=== PATIENT | male | born 1955 | race Caucasian/White ===

== ENCOUNTER → 2018-09-18 | Outpatient (CLI) | payer BC, SELFPAY ==
[2018-09-18 16:56] LABS: Anion Gap 9 (5-15); BUN 16 mg/dL (7-18); BUN/Creat Ratio 18.2 RATIO (10-20); Calcium,Total 8.9 mg/dL (8.5-10.1); Chloride 104 mmol/L (98-107); Cholesterol 209 mg/dL (200); Creatinine, Serum 0.88 mg/dL (0.70-1.30); EST Glomerular Filtration Rate 93 mL/min (>60); Est Glom Filt Rate - Afr Amer 113 mL/min (>60); Estradiol 47.2 pg/mL; Glucose 82 mg/dL (74-106); High Density Lipoprotein 42 mg/dL; PSA,Total - Annual Screen 1.32 ng/mL (0.00-4.00); Potassium 4.3 mmol/L (3.5-5.1); Sodium Level 141 mmol/L (136-145); Triglycerides 168 mg/dL; Very Low Density Lipoprotein 34 mg/dL (5-40)
[2018-09-23 12:09] LABS: Testosterone, Free 12.37 ng/dL (5.00-21.00)
[2018-09-23 13:16] LABS: Testosterone, % Free 2.91 % (1.50-4.20); Testosterone, Total 425 ng/dL (264-916)
== END | disposition home or self-care (01) ==
LOC: MFPLAB 11:33
PROVIDERS: Family Provider Family Medicine; PCP Family Medicine; Referring Provider Family Medicine; Visit Provider Family Medicine
DX: E78.00 Pure hypercholesterolemia, unspecified (principal); Z12.5 Encounter for screening for malignant neoplasm of prostate; I10 Essential (primary) hypertension; F52.21 Male erectile disorder
CPT/HCPCS: 36415; 80048; 80061; 82670; 84153; 84402; 84403; G0103

== ENCOUNTER 2021-06-07 09:36 | Outpatient (CLI) | payer MEDICARE, SELFPAY ==
--- NOTE | 2021-06-07 09:42 | RAD_ITS ---
STUDY: X-RAY - LUMBOSACRAL SPINE REASON FOR EXAM: Male, 66 years old. LUMBAGO TECHNIQUE: 7 view(s) of the lumbosacral spine were obtained including oblique views and lateral flexion and extension views.. COMPARISON: None FINDINGS: Normal lumbar lordosis. There is a minimal levoscoliosis of the lumbar spine. There is normal alignment of the vertebrae. There is multilevel endplate spondylosis of the lumbar vertebrae. There is multi-level degenerative disc disease with multi-level disc space narrowing. Facet joint osteoarthritis. Normal bilateral sacral ala, sacroiliac joints, and visualized sacrum. There is mild atherosclerotic calcification of the abdominal aorta without a demonstrated aneurysm. Calcified phleboliths are seen in the pelvis. RAD/L/S Spine w Bend Min 6 Vw IMPRESSION: Degenerative changes of the spine, as detailed above. Electronically Signed: Jr Pabon MD at 12:58 EDT ,
[2021-06-07 12:21] LABS: ALB/GLOB Ratio 1.3 RATIO (0.9-2.4); AST(SGOT) 23 U/L (15-37); Alanine Aminotransfer ALT/SGPT 37 U/L (16-61); Albumin, Serum 4.1 g/dL (3.2-5.0); Alkaline Phosphatase 63 U/L (45-117); Anion Gap 3 (5-15); BUN 19 mg/dL (7-18); BUN/Creat Ratio 19.9 RATIO (10-20); Calcium,Total 8.4 mg/dL (8.5-10.1); Chloride 104 mmol/L (98-107); Cholesterol 212 mg/dL (200); Creatinine, Serum 0.96 mg/dL (0.70-1.30); EST Glomerular Filtration Rate 84 mL/min (>60); Est Glom Filt Rate - Afr Amer 102 mL/min (>60); Globulin 3.2 g/dL (2.2-4.2); Glucose 89 mg/dL (74-106); High Density Lipoprotein 53 mg/dL; PSA,Total - Annual Screen 0.84 ng/mL (0.00-4.00); Potassium 4.2 mmol/L (3.5-5.1); Protein, Total 7.3 g/dL (6.4-8.2); Sodium Level 138 mmol/L (136-145); Thyroid Stim Hormone (TSH) 1.58 uIU/mL (0.358-3.74); Triglycerides 69 mg/dL; Very Low Density Lipoprotein 14 mg/dL (5-40)
== END 2021-06-07 23:59 | disposition home or self-care (01) ==
PROVIDERS: PCP Family Medicine; Referring Provider Family Medicine; Visit Provider Family Medicine
DX: M54.50 Low back pain, unspecified (principal); I10 Essential (primary) hypertension; R68.82 Decreased libido; Z12.5 Encounter for screening for malignant neoplasm of prostate; F41.9 Anxiety disorder, unspecified
CPT/HCPCS: 36415; 72114; 80053; 80061; 84153; 84403; 84443; G0103

== ENCOUNTER 2021-06-14 06:51 | Outpatient (RCR) | payer MEDICARE, SELFPAY ==
--- NOTE | 2021-06-14 08:39 | HP.PTEVAL ---
Patient's Visit Information DARCY MONTERO is a 66 year old M referred to Physical Therapy by Dr. Jose Luis Marte MD with a diagnosis of Lumbar DDD. Date of Evaluation: 06/14/21 Physical Therapist: Murali Kulkarni DPT - Visit Plan Frequency: 2x /Week Duration: 4 Weeks Plan: Start with prone lying, prone on elbows and REIL. Pt. to complete x6 daily. Progress with extension progression as tolerated. Once symptoms have started to reduce add in neutral spine core stability. - Subjective Pt. is here today for his initial evaluation with diagnosis of DDD of lumbar spine. Pt. reports having symptoms for for ~2-3 months. He did have xrays- showing DDD and endplate spondylosis. Pt. reports having increased pain in back initially, but is now more in his R buttock. He reports bending fwrd has been a good thing. Pt. does have increased pain in AMs. He reports he was lifting big heavy boxes at work, might have injured him self. He reports being able to lift and do activities. He reports pain that improves as the day goes on. He reports standing is okay, but walking is painful. He does ride a bike which seems to be better. He still working, but would like be back to work in his garden and out door activities. - Pain R LE Pain Intensity (Out of 10): 3 Pain Intensity Range: 1, 8 - Objective POSTURE: Pt. has slight lateral shift to L side. Pt. has slight flexed posture as well. Pt. is over wt. PALPATION: Pt. has tenderness at R side of lumbar spine, Hypomobility at L3-L5. He reports pain along gluteal region, but unable to palpate to increase symptoms. NEURO: Normal sensation of BLEs, normal DTR of BLEs. Pt. is able to rise on heels and toes without issues. ROM: Pt. has good hip and knee ROM without increase in symptoms. LUMBAR SPINE: flexion min loss NE, extension min loss decrease NB, SB L min loss NE, SB max loss increase NW, rotation L mod loss increase NW, rotation min loss NE. MMT: Pt. has good strength throughout BLEs. Core strength- poor. GAIT: Pt. has increased lateral shift in stance. He has an antalgic pattern during R stance phase. Increased pain noted with increased walking. - Special Tests L/S Slump test left side: Negative L/S Slump test right side: Positive L/S Left Straight Leg Raise: Negative L/S Right Straight Leg Raise: Positive Lumbar Standing: Flexion - Mechanical Response: No effect Lumbar Standing: Flexion - Symptoms During Testing: No effect Lumbar Standing: Flexion - Symptoms After Testing: No effect Lumbar Standing: Extension - Mechanical Response: No effect Lumbar Standing: Extension - Symptoms During Testing: Decreases Lumbar Standing: Extension - Symptoms After Testing: No better Lumbar Standing: Right Side Glides - Mechanical Response: No effect Lumbar Standing: Right Side [place] - Symptoms During Testing: Increases Lumbar Standing: Right Side [place] - Symptoms After Testing: Worse Lumbar Standing: Left Side [place] - Mechanical Response: No effect Lumbar Standing: Left Side [place] - Symptoms During Testing: Produces Lumbar Standing: Left Side [place] - Symptoms After Testing: No effect Lumbar Lying: Flexion - Mechanical Response: No effect Lumbar Lying: Flexion - Symptoms During Testing: Decreases Lumbar Lying: Flexion - Symptoms After Testing: No better Lumbar Lying: Extension - Mechanical Response: No effect Lumbar Lying: Extension - Symptoms During Testing: Decreases Lumbar Lying: Extension - Symptoms After Testing: Better Lumbar Static: Slouched Sit - Mechanical Response: No effect Lumbar Static: Slouched Sit - Symptoms During Testing: No effect Lumbar Static: Slouched Sit - Symptoms After Testing: No effect Lumbar Static: Sitting Erect - Mechanical Response: No effect Lumbar Static: Sitting Erect - Symptoms During Testing: No effect Lumbar Static: Sitting Erect - Symptoms After Testing: No effect Lumbar Static:Lying Prone in Extension - Mechanical Response: No effect Lumbar Static: Lying Prone in Extension - Sx During Testing: Decreases Lumbar Static: Lying Prone in Extension - Sx After Testing: Better - Balance/Special Test Scores Oswestry Low Back Score: 20 - Goals Goal 1:: LTG: Pt. to be I with HEP for lumbar ROM, core strengthening. Goal Time Frame: 4-6 Weeks Goal 2:: STG: pt. to sleep throughout the night without increase in symptoms, with 0-2/10 pain in lumbar spine upon waking. Goal Time Frame: 2-4 Weeks Goal 3:: LTG: pt. to complete all work related activities with 0-2/10 pain in lumbar spine. Goal Time Frame: 4-6 Weeks Goal 4:: LTG: pt. to ambulate with normal gait pattern without increase in symptoms for unlimited distances. Goal Time Frame: 4-6 Weeks Goal 5:: STG: pt. to have no presence of lateral shift. Goal Time Frame: 2-4 Weeks Goal 6:: LTG: Pt. to have full ROM of lumbar spine without increase in symptoms. Goal Time Frame: 4-6 Weeks - Rehabilitation Potential Physical Therapy Diagnosis: Pt. has signs and symptoms consistent with lumbar DDD. Pt. has testing suggesting discogenic involvement with a positive results with extension. He has marked hypomobility with lateral shift, increased pain and decreased tolerance to functional and work activities. Rehabilitation Potential: Good - Anticipated Interventions Patient/Client Instruction: Educate patient on: Condition, Plan of Care, Risk Factors, Benefits of Fitness Program For the Purpose of:: To foster healthy habits, To improve decision making, To facilitate caregiver knowledge, To improve self management, To prevent re-injury, To improve ability to perform tasks related to life management, To improve tolerance to ADL's Therapeutic Exercise to Include: Strength training, Power training, Endurance training, Body mechanics, Postural training, Flexibilty training, Passive ROM, Active ROM, Dynamic Lumbar Stabilization, Harris Exercises For the Purpose of:: To decrease pain, To decrease swelling/inflammation, To increase ROM, To improve nutrient delivery to tissue, To increase oxygenation perfusion, To improve muscle performance and motor function, To improve ability to perform ADL's, To improve health of tissue, To decrease soft tissue restriction Manual Therapy Techniques to Include: Mobilization, Manipulation, Functional dry needling, Soft tissue mobilization For the Purpose of:: To decrease swelling/inflammation, To increase ROM, To improve nutrient delivery to tissue Thank you for the opportunity to evaluate your patient. For Medicare and Medicare HMO plans, please review the plan of care and approve it. It will need to be FAXED BACK to us at [phone] for Medicare purposes. For Medicare only, by signing this I certify the plan of care. Please let me know if there are questions or concerns regarding this plan of care. Physician Signature: Date:
== END 2021-06-14 19:00 | disposition home or self-care (01) ==
LOC: PT 06:51
PROVIDERS: PCP Family Medicine; Referring Provider Family Medicine; Visit Provider Family Medicine
DX: M51.36 Other intervertebral disc degeneration, lumbar region (principal)
CPT/HCPCS: 97110; 97161

== ENCOUNTER → 2023-01-17 | Outpatient (CLI) | payer MEDICARE, SELFPAY ==
[2023-01-17 15:10] LABS: AST(SGOT) 18 U/L (15-37); Alanine Aminotransfer ALT/SGPT 31 U/L (16-61); Albumin, Serum 3.5 g/dL (3.2-5.0); Alkaline Phosphatase 63 U/L (45-117); Anion Gap 7 (5-15); BUN 17 mg/dL (7-18); BUN/Creat Ratio 18.9 RATIO (10-20); Calcium,Total 8.6 mg/dL (8.5-10.1); Chloride 107 mmol/L (98-107); Cholesterol 226 mg/dL (200); EST Glomerular Filtration Rate 89 mL/min (>60); Est Glom Filt Rate - Afr Amer 108 mL/min (>60); Globulin 3.5 g/dL (2.2-4.2); Glucose 117 mg/dL (74-106); High Density Lipoprotein 41 mg/dL; PSA,Total - Annual Screen 0.97 ng/mL (0.00-4.00); Potassium 4.7 mmol/L (3.5-5.1); Sodium Level 142 mmol/L (136-145); Triglycerides 494 mg/dL
== END | disposition home or self-care (01) ==
LOC: MFPLAB 12:09
PROVIDERS: PCP Family Medicine; Visit Provider Family Medicine
DX: R73.01 Impaired fasting glucose (principal); E78.00 Pure hypercholesterolemia, unspecified; Z12.5 Encounter for screening for malignant neoplasm of prostate
CPT/HCPCS: 36415; 80053; 80061; 84153; G0103

== ENCOUNTER → 2023-08-27 | Outpatient (CLI) | payer MEDICARE, SELFPAY ==
--- NOTE | 2023-08-27 15:22 | RAD_ITS ---
INDICATION: pain, decreased rom EXAMINATION/TECHNIQUE: X-RAY - LEFT XR Knee Complete 4 Views or More 4 VIEWS COMPARISON: FINDINGS: SOFT TISSUES: There is prepatellar soft tissue swelling. No radiopaque foreign body. BONES/JOINTS: No acute fracture or subluxation.. Degenerative spurring at the femorotibial and patellofemoral compartments. Narrowing of the medial femorotibial compartment .. No sclerotic or destructive changes observed. RAD/Knee 4 or More Views IMPRESSION: Degenerative changes. Prepatellar subcutaneous edema. Electronically Signed: Ishan Petit DO at 16:11 EDT Reading Location ID and State: [facility] / [place] Tel [phone], Service support ,
== END | disposition home or self-care (01) ==
LOC: MTRAD 15:21
PROVIDERS: PCP Family Medicine; Referring Provider Family Medicine; Visit Provider Family Medicine
DX: M25.562 Pain in left knee (principal)
CPT/HCPCS: 73564

== ENCOUNTER → 2024-03-05 | Outpatient (CLI) | payer MEDICARE, SELFPAY ==
[2024-03-05 10:54] LABS: AST(SGOT) 14 U/L (15-37); Alanine Aminotransfer ALT/SGPT 30 U/L (16-61); Albumin, Serum 3.5 g/dL (3.2-5.0); Alkaline Phosphatase 71 U/L (45-117); Anion Gap 6 (5-15); BUN 17 mg/dL (7-18); BUN/Creat Ratio 19.2 RATIO (10-20); Calcium,Total 8.8 mg/dL (8.5-10.1); Chloride 106 mmol/L (98-107); Cholesterol 209 mg/dL (200); Creatinine, Serum 0.89 mg/dL (0.70-1.30); EST Glomerular Filtration Rate 91 mL/min (>60); Est Glom Filt Rate - Afr Amer 110 mL/min (>60); Globulin 3.4 g/dL (2.2-4.2); Glucose 99 mg/dL (74-106); High Density Lipoprotein 49 mg/dL; Protein, Total 6.9 g/dL (6.4-8.2); Sodium Level 138 mmol/L (136-145); Triglycerides 121 mg/dL; Very Low Density Lipoprotein 24 mg/dL (5-40)
== END | disposition home or self-care (01) ==
LOC: MTLAB 07:37
PROVIDERS: PCP Family Medicine; Referring Provider Family Medicine; Visit Provider Family Medicine
DX: Z12.5 Encounter for screening for malignant neoplasm of prostate (principal); I10 Essential (primary) hypertension
CPT/HCPCS: 36415; 80053; 80061; 84153; G0103

== ENCOUNTER → 2024-05-07 | Outpatient (CLI) | payer MEDICARE, SELFPAY ==
--- NOTE | 2024-05-07 08:00 | VDLE_ITS ---
Reason For Study Reason For Study: Left leg pain RIGHT LEFT CFV is compressible, spontaneous, phasic, competent GSV is normal. and demonstrates normal augmentation. CFV is compressible, spontaneous, phasic, competent, Procedure and demonstrates normal augmentation. This is a venous duplex using B-mode, color flow and FV is compressible, spontaneous, phasic, competent spectral Doppler. and demonstrates normal augmentation. Exam performed in department. POP V is compressible, spontaneous, phasic, competent A preliminary report was called and/or faxed to and demonstrates normal augmentation. Estuardo. T/P Trunk is compressible. PTV is compressible. LT PerV is compressible. Nonvascularized structure noted in the left popliteal fossa that measures 1.33 x 2.85 x 5.95 cm. VL/Venous Duplex US, Unilateral Interpretation Summary Deep veins of the left lower extremity are patent and compressible segmentally. There is no evidence of left lower extremity deep vein thrombosis. Valvular competence appears intact within the p roximal deep venous system on the left . The left great saphenous vein appears patent and compressible segmentally. A no n-vascular, hypoechoic structure is noted in the left popliteal space, measuring 1.33 cm x 2.85 cm x 5.95 cm. This may re present a popliteal cyst. Clinical correlation is advised. The right common femoral vein is patent and compressibl e . Ordering Physician: Salvador Marte Referring Physician: Salvador Marte Performed By: Trena Hernandez RVT
== END | disposition home or self-care (01) ==
PROVIDERS: PCP Family Medicine; Referring Provider Family Medicine; Visit Provider Family Medicine
DX: M25.562 Pain in left knee (principal); M79.605 Pain in left leg
CPT/HCPCS: 93971

== ENCOUNTER → 2024-05-26 | Outpatient (CLI) | payer MEDICARE, SELFPAY ==
[2024-05-26 11:01] LABS: Cholesterol 142 mg/dL (<=200); High Density Lipoprotein 52 mg/dL; Low Density Lipoprotein Calc. 75 mg/dL; Triglycerides 75 mg/dL; Very Low Density Lipoprotein 15 mg/dL (5-40); cholesterol:hdl ratio screen 2.74
== END | disposition home or self-care (01) ==
LOC: MTLAB 08:25
PROVIDERS: PCP Family Medicine; Referring Provider Family Medicine; Visit Provider Family Medicine
DX: E78.00 Pure hypercholesterolemia, unspecified (principal)
CPT/HCPCS: 36415; 80061

== ENCOUNTER → 2024-09-01 | Outpatient (CLI) | payer MEDICARE, SELFPAY ==
[2024-09-01 17:19] LABS: Hematocrit 42.4 % (40-54); Hemoglobin 14.5 g/dL (13.0-16.5); Immature Granulocytes Count 0.010 X10^3/uL (0.0-0.0); Mean Corp Hgb Conc 34.2 g/dL (32-36); Mean Corpuscular Volume 88.3 fL (80-94); Mean Platelet Vol. 9.8 fl (6.2-12.0); NRBC Flagged by Analyzer 0 % (0-5); Platelet Count 208 K/mm3 (150-450); RBC Distribution Width CV 13.4 % (11.6-14.6); RBC Distribution Width SD 43.8 fl (35.1-43.9); Red Blood Count 4.80 M/mm3 (4.6-6.2); White Blood Count 9.1 K/mm3 (4.4-11.0)
[2024-09-01 18:03] LABS: Anion Gap 14 (5-15); BUN 20 mg/dL (4-19); BUN/Creat Ratio 22.4 RATIO (10-20); Calcium,Total 9.3 mg/dL (7.6-11.0); Carbon Dioxide 22.0 mmol/L (21.0-32.0); Chloride 104 mmol/L (98-108); Glucose 92 mg/dL (70-99); Potassium 4.1 mmol/L (3.3-5.1)
== END | disposition home or self-care (01) ==
PROVIDERS: PCP Family Medicine; Referring Provider Internal Medicine Cardiovascular Disease; Visit Provider Internal Medicine Cardiovascular Disease
DX: I10 Essential (primary) hypertension (principal); I25.10 Atherosclerotic heart disease of native coronary artery without angina pectoris
CPT/HCPCS: 36415; 80048; 85025

== ENCOUNTER 2024-09-08 09:08 | Observation (INO) | payer MEDICARE, SELFPAY ==
[2024-09-07 08:05] VITALS: BMI 34.3
[2024-09-08] VITALS (9 sets, daily range): BP systolic 117–129; BP diastolic 67–86; PULSE 60–72; RESP 14–18; TEMP 36.5–36.6; O2SAT 98–100
--- OUTSIDE RECORDS SUMMARY | 2024-09-08 07:25 | XMS RPT_ITS | CCD ---
Author Organization [facility] Care Team Providers Care Software Solutions Architect Name Role Phone Laura Coronel LPN Unavailable Unavailab marcio Lundberg GLASS TUBE BENDER-C, Ashutosh Lee Unavailable Unavailable Dr. Jose Luis Marte Primary Care Provider [phone] Dr. Jose Luis Marte Referring Provider [facility] DRILL SHARPENER OPERATOR, DRILL SHARPENER OPERATOR-C Samir Garibay Attending Provider Estuardo TAN, Dr. Franco Primary Care Provider Dr. Salvador Marte MD Attending Provider [phone] Dr. Salvador Marte MD Referring Provider Estuardo TAN, Dr. Franco Primary Care Provider Dr. Salvador Marte MD Attending Provider Dr. Salvador Marte MD Referring Provider [phone] La TAN, Dr. Mark Lee Attending Provider Dr. Leonid Camp MD Attending Provider Conrado TAN, Dr. Jaquez Referring Provider Leonid Camp Referring Unavailable Salvador Marte Primary Care Unavailable Leonid Camp Attending Unavailable Leonid Camp Referring Unavailable Salvador Marte Primary Care Unavailable Leonid Camp Attending Unavailable Salvador Marte Referring Unavailable Salvador Marte Primary Care Unavailable Salvador Marte Attending Unavailable Salvador Marte Referring Unavailable Salvador Marte Primary Care Unavailable Salvador Marte Attending Unavailable Salvador Marte Attending Unavailable Salvador Marte Referring Unavailable Salvador Marte Primary Care Unavailable Salvador Marte Attending Unavailable Salvador Marte Referring Unavailable Salvador Marte Primary Care Unavailable Leonid Camp Attending Unavailable Leonid Camp Referring Unavailable Salvador Marte Primary Care Unavailable Salvador Marte Referring Unavailable Leonid Camp Attending Unavailable Salvador Marte Primary Care Unavailable Estuardo TAN, Dr. Franco Primary Care Provider Estuardo TAN, Dr. Franco Attending Provider Estuardo TAN, Dr. Franco Referring Provider Medications Current Medications Medication Drug Class(es) Dates Sig (Normalized) Sig (Original) amLODIPine 10 mg oral tablet (2 sources) Dihydropyridine Calcium Channel Sujey Start: 08-25-2024 take 1 tablet by mouth once daily Amlodipine 10 mg tablet Active 10 mg PO daily August 25, 2024 12:00am aspirin 81 mg delayed release oral tablet (2 sources) Platelet Aggregation Inhibitor, Nonsteroidal Anti-inflammatory Drug Start: 09-01-2024 take 1 tablet by mouth once daily Aspirin (Adult Aspirin Regimen) 81 mg tablet,delayed release (DR/EC) Active 81 mg PO daily September 01, 2024 12:00am losartan potassium 100 mg oral tablet (7 sources) Angiotensin 2 Receptor Sujey Start: 12-22-2022 End: 08-25-2024 take 1 tablet by mouth once daily Losartan 100 mg tablet Active 100 mg PO daily August 25, 2024 1:11pm Start: 12-22-2022 Losartan Activ e MG PO December 21, 2022 11:00pm Multivitamin preparation (1 source) Start: 12-22-2022 take 1 tablet by mouth once daily Multivitamin Active 1 TABLET PO DAILY December 21, 2022 11:00pm Multivitamin tablet (4 sources) Start: 12-22-2022 Multivitamin t ablet Active 1 {tbl} PO DAILY December 22, 2022 12:00am Adams-3 Fatty Acids (5 sources) Start: 12-22-2022 take 1 capsule by mouth once daily Adams-3 Fatty Acids 1,250 mg capsule Active 1250 mg PO DAILY December 22, 2022 12:00am Start: 12-22-2022 take 1250 mg by mouth once mukund ly Adams-3 Fatty Acids Active 1250 MG PO DAILY December 21, 2022 11:00pm rosuvastatin calcium 20 mg oral tablet (4 sources) HMG-CoA Reductase Inhibitor Start: 08-25-2024 End: 09-01-2024 take 1 tablet by mouth once daily Rosuvastatin 20 mg tablet Active 20 mg PO daily September 01, 2024 3:54pm Completed/Discontinued Medications Medication Drug Class(es) Dates Sig (Normalized) Sig (Original) azithromycin 250 mg oral tablet (3 sources) Macrolide Antimicrobial Start: 07-28-2016 AZITHROMYCIN 250 MG TABS 2 tablets by mouth today and then 1 tablet daily for the next 4 days AZITHROMYCIN [id number] Ashutosh Lundberg GLASS TUBE BENDER-C cephalexin 500 mg oral tablet (5 sources) Cephalosporin Antibacterial Start: 12-22-2022 End: 01-01-2023 take 1 tablet by mouth three times daily Cephalexin 500 mg tablet Discontinued 500 mg PO THREE TIMES A DAY 30 10 0 December 22, 2022 12:00am December 31, 2022 1:00am January 01, 2023 1:04am predniSONE 10 mg oral tablet (5 sources) Start: 12-22-2022 End: 01-06-2023 Prednisone 10 mg tablet Discontinued 10 mg PO .COMPLEX 35 15 0 December 22, 2022 12:00am January 05, 2023 1:00am January 06, 2023 1:03am 10 mg orally; 40mg x5 days, 20mg x5 days, 10mg x5 days Start: 12-22-2022 End: 01-06-2023 Prednisone Discontinued 10 M G PO .COMPLEX 35 15 December 21, 2022 11:00pm January 06, 2023 12:03am 10 mg orally; 40mg x5 days, 20mg x5 days, 10mg x5 days Problems Active Problems Problem Classification Problem Date Documented Da te Episodic/Chronic Coronary atherosclerosis and other heart disease (4 sources) Coronary arteriosclerosis; Translations: [Atherosclerotic heart disease of [place] coronary artery without angina pectoris] Onset: 09-01-2024 08-25-2024 Chronic Disorders of lipid metabolism (1 source) Pure hypercholesterolemia , unspecified; Translations: [Pure hypercholesterolemia , unspecified] Onset: 06-01-2024 Chronic Essential hypertension (9 sources) Hypertensive disorder; Translations: [Essential hypertension] Onset: 09-01-2024 07-28-2016 Chronic Other screening for suspected conditions (not mental disorders or infectious disease) (7 sources) Coronary arteriography abnormal; Translations: [Abnormal findings on diagnostic imaging of heart and coronary circulation] Onset: 04-01-2024 08-25-2024 Episodic Other skin disorders (5 sources) Eruption; Translations: [Rash and other nonspecific skin eruption] 12-22-2022 Episodic Other skin disorders (1 source) Rash and other nonspecific skin eruption; Translations: [Rash and other nonspecific skin eruption] 12-22-2022 Episodic Past or Other Problems Problem Classification Problem Date Documented Da te Episodic/Chronic Headache, including migraine (3 sources) Headache; Translations: [Headache] Onset: 07-28-2016 07-28-2016 Episodic Other non-traumatic joint disorders (1 source) Pain in left knee; Translations: [Pain in left knee] Onset: 05-17-2024 Episodic Other upper respiratory infections (6 sources) Acute upper respiratory infection; Translations: [Acute pharyngitis] Onset: 07-28-2016 07-28-2016 Episodic Results Test Name Value Interpretation Reference Range Facility Absolute lymphocyte countOrd ered By: Leonid Camp on 09-01-2024 Lymphocytes Auto (Unsp spec) [#/Vol] 2.70 10*3/uL 0.83-4.51 [facility] Absolute neutrophil countOrd ered By: Leonid Camp on 09-01-2024 Neutrophils (Bld) [#/Vol] 5.6 10*3/uL 2.0-7.7 [facility] Anion gap in Serum or Plasma Ordered By: Leonid Camp on 09-01-2024 Anion gap [Moles/Vol] 14 mmol/L 5-15 [facility] Automated lymphocyte count a s percentage of total leukocytesOrdered By: Leonid Camp on 09-01-2024 Lymphocytes/100 WBC Auto (Unsp spec) 29.6 % 19-41 [facility] BUN/creatinine ratioOrdered By: Leonid Camp on 09-01-2024 Urea nitrogen/Creatinine [Mass ratio] 22.4 mg/mg High 10-20 [facility] Basic Metabolic Profile (BMP )on 07-09-2025 BUN/CRE 22.4 RATIO High 10-20 [facility] Comment on above: Performed By: #### L 500.2500, L100.0100 #### [facility] [address] [place], [address] Calcium [Mass/Vol] 9.3 mg/dL Normal 7.6-11.0 [facility] Comment on above: Performed By: #### L 500.2500, L100.0100 #### [facility] [address] [place], [address] Chloride [Moles/Vol] 104 mmol/L Normal 98-108 [facility] Comment on above: Performed By: #### L 500.2500, L100.0100 #### [facility] [address] [place], [address] CO2 [Moles/Vol] 22.0 mmol/L Normal 21.0-32.0 [facility] Comment on above: Performed By: #### L 500.2500, L100.0100 #### [facility] [address] [place], [address] Creatinine [Mass/Vol] 0.87 mg/dL Normal 0.70-1.20 [facility] Comment on above: Performed By: #### L 500.2500, L100.0100 #### [facility] [address] [place], [address] GAP 14 Normal 5-15 [facility] Comment on above: Performed By: #### L 500.2500, L100.0100 #### [facility] [address] [place], [address] GFR/1.73 sq M.predicted among non-blacks MDRD (S/P/Bld) [Vol rate/Area] 94 mL/min/{1.73_m2} Normal >60 [facility] Comment on above: Result Comment: mL/m in/1.73m2 CKD-EPI Creatinine Equation (2020) Performed By: #### L 500.2500, L100.0100 #### [facility] [address] [place], [address] Glucose [Mass/Vol] 92 mg/dL Normal 70-99 [facility] Comment on above: Performed By: #### L 500.2500, L100.0100 #### [facility] [address] [place], [address] Potassium [Moles/Vol] 4.1 mmol/L Normal 3.3-5.1 [facility] Comment on above: Result Comment: Hemo lysis present, Results??could be affected. ?? Performed By: #### L 500.2500, L100.0100 #### [facility] [address] [place], [address] Sodium [Moles/Vol] 139 mmol/L Normal 133-145 [facility] Comment on above: Performed By: #### L 500.2500, L100.0100 #### [facility] [address] [place], [address] Urea nitrogen [Mass/Vol] 20 mg/dL High 4-19 [facility] Comment on above: Performed By: #### L 500.2500, L100.0100 #### [facility] [address] [place], [address] Basophil percentageOrdered B y: [place] Conrado on 09-01-2024 Basophils/100 WBC (Bld) 0.7 % 0-1 [facility] CBC W/Diff, Automatedon 0 Absolute Lymph 2.70 X10 3/uL Normal 0.83-4.51 [facility] Comment on above: Performed By: #### L 500.2500, L100.0100 #### [facility] [address] [place], [address] Absolute Neut 5.6 X10 3/uL Normal 2.0-7.7 [facility] Comment on above: Performed By: #### L 500.2500, L100.0100 #### [facility] [address] [place], [address] Basophils/100 WBC (Bld) 0.7 % Normal 0-1 [facility] Comment on above: Performed By: #### L 500.2500, L100.0100 #### [facility] [address] [place], [address] Eosinophils/100 WBC (Bld) 0.3 % Normal 0-5 [facility] Comment on above: Performed By: #### L 500.2500, L100.0100 #### [facility] [address] [place], [address] Erythrocyte distribution width (RBC) [Ratio] 13.4 % Normal 11.6-14.6 [facility] Comment on above: Performed By: #### L 500.2500, L100.0100 #### [facility] [address] [place], [address] Hematocrit (Bld) [Volume fraction] 42.4 % Normal 40-54 [facility] Comment on above: Performed By: #### L 500.2500, L100.0100 #### [facility] [address] [place], [address] Hemoglobin (Bld) [Mass/Vol] 14.5 g/dL Normal 13.0-16.5 [facility] Comment on above: Performed By: #### L 500.2500, L100.0100 #### [facility] [address] [place], [address] IG% 0.100 Normal 0.0-0.9 [facility] Comment on above: Result Comment: IG% - Immature Granulocytes (promyelocytes, myelocytes and metamyelocytes) > 1% indicates that a LEFT SHIFT is Present. Performed By: #### L 500.2500, L100.0100 #### [facility] [address] [place], [address] Lymphocytes/100 WBC (Bld) 29.6 % Normal 19-41 [facility] Comment on above: Performed By: #### L 500.2500, L100.0100 #### [facility] [address] [place], [address] MCH (RBC) [Entitic mass] 30.2 pg Normal 27.0-32.0 [facility] Comment on above: Performed By: #### L 500.2500, L100.0100 #### [facility] [address] [place], [address] MCHC (RBC) [Mass/Vol] 34.2 g/dL Normal 32-36 [facility] Comment on above: Performed By: #### L 500.2500, L100.0100 #### [facility] [address] [place], [address] MCV (RBC) [Entitic vol] 88.3 fL Normal 80-94 [facility] Comment on above: Performed By: #### L 500.2500, L100.0100 #### [facility] [address] [place], [address] Monocytes/100 WBC (Bld) 8.0 % Normal 0-10 [facility] Comment on above: Performed By: #### L 500.2500, L100.0100 #### [facility] [address] [place], [address] Neutrophils/100 WBC (Bld) 61.3 % Normal 47-70 [facility] Comment on above: Performed By: #### L 500.2500, L100.0100 #### [facility] [address] [place], [address] Nucleated RBC (Bld) [#/Vol] 0 10*3/uL Normal 0-5 [facility] Comment on above: Performed By: #### L 500.2500, L100.0100 #### [facility] [address] [place], [address] Platelet mean volume (Bld) [Entitic vol] 9.8 fL Normal 6.2-12.0 [facility] Comment on above: Performed By: #### L 500.2500, L100.0100 #### [facility] [address] [place], [address] Platelets (Bld) [#/Vol] 208 10*3/uL Normal 150-450 [facility] Comment on above: Performed By: #### L 500.2500, L100.0100 #### [facility] [address] [place], [address] RBC (Bld) [#/Vol] 4.80 10*6/uL Normal 4.6-6.2 [facility] Comment on above: Performed By: #### L 500.2500, L100.0100 #### [facility] [address] [place], [address] RDW SD 43.8 fl Normal 35.1-43.9 [facility] Comment on above: Performed By: #### L 500.2500, L100.0100 #### [facility] [address] [place], [address] WBC (Bld) [#/Vol] 9.1 10*3/uL Normal 4.4-11.0 [facility] Comment on above: Performed By: #### L 500.2500, L100.0100 #### [facility] [address] [place], [address] Carbon dioxide, total [Moles /volume] in Central venous bloodOrdered By: Leonid Camp on 09-01-2024 CO2 [Moles/Vol] 22.0 mmol/L 21.0-32.0 [facility] Cardiology Visit Reporton Cardiology Visit Report [facility] [address] [place] [address] OFFICE VISIT Date of Service: 09/01/24 MR#: [id number] Acct: [id number] Name: DARCY MONTERO Rep #: [id number] : 1955 Provider: Dr. Leonid Camp MD Age/Sex: 69/M Location: [facility] Status: Signed HPI HPI History of Present Illness Details: 69-year-old man with a history of hypertension hyperlipidemia on therapy with a strong family history of coronary artery disease. His brother had a markedly elevated coronary calcium score and he went and had a coronary calcium score which demonstrated marked elevation with a left main demonstrating 62, left anterior descending artery with 5700, circumflex artery with 13, right coronary artery with 78. His total Agatston score was 5859. He denies any chest pain or shortness of breath or paroxysmal nocturnal dyspnea pedal edema no neck arm or jaw discomfort suggest angina. He has been compliant with his medications his physical exam is significant for soft systolic murmur noted left sternal border his electrocardiogram demonstrates sinus rhythm with a rate of 78 bpm. His lipid profile demonstrates a total cholesterol 142 HDL of 52 LDL of 75. Intake Vital Signs 09/01/24 15:57 Height 5 ft 8 in Weight: 226 lb BMI 34.3 BP 146/78 H Blood Pressure Location Lt brachial Position Sitting Respiration 16 Pulse 80 Pulse Source Monitor Intake Visit Reasons: ABN CCTA (ESTUARDO) Second Time Worker Required: No Accompanied by: Self Is patient in pain?: No Allergies No Known Allergies Allergy (Unverified 09/01/24 15:53) Medications ???Medication ???Instructions ???Recorded ???Confirmed ???Type multivitamin 1 tab PO DAILY 12/22/22 09/01/24 H istory omega-3 fatty acids 1,250 mg 1,250 mg PO DAILY 12/22/22 5 History capsule amlodipine 10 mg tablet 10 mg PO QDAY 08/25/24 09/01/24 Hi story losartan 100 mg tablet 100 mg PO QDAY 07/02/25 07/09/25 H istory aspirin 81 mg tablet,delayed 81 mg PO QDAY 09/01/24 09/01/24 Hi story release (Adult Aspirin Regimen) rosuvastatin 20 mg tablet 20 mg PO QDAY 09/01/24 09/01/24 Hi story Have you fallen in the past year?: No [facility] Medical History CAD (coronary artery disease) Abnormal cardiac CT angiography Essential (primary) hypertension Surgical History No history of previous surgery Family History Father Heart disease Myocardial infarction Brother Heart disease Social History Smoking Status: Former smoker alcohol intake: current alcohol intake frequency: holidays/special occasions only substance use type: does not use ROS Const Const: Negative for fatigue, weakness, headache(s), daytime sleepiness or difficulty sleeping ENT ENT: Negative for headache(s), dizziness or Nosebleed/epistaxis Cardio Chest Pain: No Palpitations: No Edema: None Resp Respiratory: Negative for SOB with activity, SOB at rest, SOB orthopnea SOB lying down or Cough GI GI: Negative nausea, vomiting or heartburn Neuro Neuro: Negative for dizziness, lightheadedness, near syncope, headache(s) or weakness Endo Endo: Negative for fatigue Cardiology Exam Const Appearance: cooperative, healthy appearing, no acute distress, well developed and well groomed Nutritional Appearance: average body habitus and well nourished Orientation: alert, awake and oriented x3 Head Head: normal to inspection, normocephalic and atraumatic Ears: hearing grossly normal bilaterally and external ears normal Nose: external nose normal, nares normal, nasal mucous membranes and turbinates normal, septum normal and no nasal discharge Face and Sinus: face symmetric Mouth: oral mucosae normal, tongue normal, oropharynx normal and moist mucous membranes Teeth and gingiva: dentition normal Throat: posterior oropharynx normal, tonsils normal and uvula midline Eyes General: appearance normal, both eyes and all related structures Eyelids: eyelids normal Conjunctivae: conjunctivae normal Pupils: PERRL, normal by confrontation and accommodation normal EOM: EOM intact bilaterally Neck Neck: normal visual inspection, trachea midline and no JVD JVD: +5 Carotids: normal carotid upstroke and bounding pulses Chest Chest inspection: normal inspection of the chest, symmetric chest movement and normal respiratory effort Auscultation: Bilateral: Clear to Auscultation Cardio Palpation: normal PMI Rate: regular rate Rhythm: regular rhythm Heart sounds: S1 normal, S2 normal, murmur and normal, physiologic split S2; Negative rub or gallop Murmur: Grade 1/6 GI (more content not included)... Normal [facility] Chloride assayOrdered By: Bandar Camp on 09-01-2024 Chloride [Moles/Vol] 104 mmol/L 98-108 [facility] Eosinophil percentageOrdered By: Leonid Camp on 09-01-2024 Eosinophils/100 WBC (Bld) 0.3 % 0-5 [facility] Erythrocyte distribution wid th ratioOrdered By: Leonid Camp on 09-01-2024 Erythrocyte distribution width (RBC) [Ratio] 13.4 % 11.6-14.6 [facility] Erythrocyte distribution wid th standard deviationOrdered By: Leonid Camp on 09-01-2024 Erythrocyte distribution width (RBC) [Ratio] 43.8 fl 35.1-43.9 [facility] Glomerular filtration rate ( GFR) estimation/1.73 sq m using serum, plasma, or whole bOrdered By: Leonid Camp on 09-01-2024 GFR/1.73 sq M.predicted among non-blacks MDRD (S/P/Bld) [Vol rate/Area] 94 mL/min/{1.73_m2} >60 [facility] Comment on above: mL/min/1.73m2 CKD-EP I Creatinine Equation (2020) Hematocrit Auto (Bld) [Volum e fraction]Ordered By: Leonid Camp on 09-01-2024 Hematocrit (Bld) [Volume fraction] 42.4 % 40-54 [facility] Hemoglobin measurementOrdere d By: Leonid Camp on 09-01-2024 Hemoglobin (Bld) [Mass/Vol] 14.5 g/dL 13.0-16.5 [facility] Immature granulocytes/100 WB C Auto (Bld)Ordered By: Leonid Stovallori on 09-01-2024 Immature granulocytes/100 WBC (Bld) 0.100 % 0.0-0.9 [facility] Comment on above: IG% - Immature Granu locytes (promyelocytes, myelocytes and metamyelocytes) > 1% indicates that a LEFT SHIFT is Present. MCV (mean corpuscular volume ) determinationOrdered By: [place] Camp on 09-01-2024 MCV (RBC) [Entitic vol] 88.3 fL 80-94 [facility] Mean corpuscular hemoglobin (MCH) determinationOrdered By: [place] Conrado on 09-01-2024 MCH (RBC) [Entitic mass] 30.2 pg 27.0-32.0 [facility] Mean corpuscular hemoglobin concentration (MCHC) determinationOrdered By: [place] Camp on 09-01-2024 MCHC (RBC) [Mass/Vol] 34.2 g/dL 32-36 [facility] Mean platelet volume determi nationOrdered By: [place] Camp on 09-01-2024 Platelet mean volume (Bld) [Entitic vol] 9.8 fL 6.2-12.0 [facility] Monocyte percentageOrdered B y: [place] Conrado on 09-01-2024 Monocytes/100 WBC (Bld) 8.0 % 0-10 [facility] Neutrophil percentageOrdered By: [place] Conrado on 09-01-2024 Neutrophils/100 WBC (Bld) 61.3 % 47-70 [facility] [facility] Nucleated red blood cell per centageOrdered By: Portlanddenita Camp on 09-01-2024 Nucleated RBC/100 WBC (Bld) [Ratio] 0 % 0-5 [facility] Platelet countOrdered By: Cy ril Conrado on 09-01-2024 Platelets (Bld) [#/Vol] 208 10*3/uL 150-450 [facility] Potassium measurement (mass/ volume)Ordered By: Leonidgeorgia Camp on 09-01-2024 Potassium (Unsp spec) [Mass/Vol] 4.1 mmol/L 3.3-5.1 [facility] Comment on above: Hemolysis present, R esults could be affected. RBC Auto (Bld) [#/Vol]Ordere d By: Leonid Conrado on 09-01-2024 RBC (Bld) [#/Vol] 4.80 10*6/uL 4.6-6.2 [facility] Serum creatinine measurement (mass/volume)Ordered By: Leonid Camp on 09-01-2024 Creatinine [Mass/Vol] 0.87 mg/dL 0.70-1.20 [facility] Serum glucose measurement (m ass/volume)Ordered By: Leonid Camp on 09-01-2024 Glucose [Mass/Vol] 92 mg/dL 70-99 [facility] Serum or plasma calcium rogerio urement (mass/volume)Ordered By: Leonid Camp on 09-01-2024 Calcium [Mass/Vol] 9.3 mg/dL 7.6-11.0 [facility] Serum or plasma urea nitroge n measurement (mass/volume)Ordered By: Leonid Camp on 09-01-2024 Urea nitrogen [Mass/Vol] 20 mg/dL High 4-19 [facility] Sodium levelOrdered By: Kalyan Camp on 09-01-2024 Sodium [Moles/Vol] 139 mmol/L 133-145 [facility] White blood cell (WBC) count Ordered By: Leonid Conrado on 09-01-2024 WBC (Bld) [#/Vol] 9.1 10*3/uL 4.4-11.0 [facility] Coronary Angiography CTon Coronary Angiography [facility] Imaging Services [address] [place] [address] 08/09/24 1829 MR#: [id number] Acct: [id number] Name: DARCY MONTERO Rep #: [id number] : 1955 69 From: Leonid Camp MD PCP: Dr. Salvador Marte MD Status:REG REF Y Location: CT Calcium Scoring Date of Study:: 07/27/24 Indications Indications: FH Coronary Calcium Scoring: High-resolution Computed Tomographic imaging of the chest was performed on [07/27/24 ], with particular attention paid to the coronary arteries. Images from the examination were analyzed for the presence and extent of coronary artery calcification , using coronary calcium quantification software. The patient tolerated the procedure well and there were no complications. The results of the coronary calcification analysis are provided below. Findings Coronary Artery Left Main (LM): 62 Left Anterior Descending (LAD): 5,706 Left Circumflex (LCX): 13 Right Coronary Artery (RCA): 78 Total Agatston Score: 5,859 Percentile Ranking: Greater than 90th percentile Calcium Scoring Interpretation: Different methods to categorize the overall amount of coronary plaque. Overall amount CAC SIS Visual of coronary plaque P1 Mild -100 <2 1-2 vessels with mild amount of plaque P2 Moderate 101-300 3-4 1-2 vessels with moderate amount, 3 vessels with mild amount of plaque P3 Severe 301-999 5-7 3 vessels with moderate amount, 1 vessel with severe amount of plaque P4 Extensive >1000 >8 2-3 vessels with severe amount of plaque Conclusion: Severe single-vessel disease with moderate disease in the other vessels. 08/09/24 1832 Date Leonid Baileyignpam Signature (if applicable): Date CC: Dr. Salvador Marte MD; Dr. Leonid Camp MD Signed Normal [facility] Limited Chest CT Cardiac Onl [facility] 07-27-[address] Cardiac Only [facility] Imaging Services [address] [place] [id number] Cardiac Only MR#: [id number] Acct: [id number] Name: DARCY MONTERO Rep #: [id number] : 1955 M 69 From: Irineo Corrigan MD PCP: Dr. Salvador Marte MD Status: REG REF Study: Limited Chest CT Cardiac Only Date of Exam: Exam# [id number] Ordering Dr: Salvador Mrate PROCEDURE: LIMITED CHEST CT CARDIAC ONLY REASON FOR EXAM: HYPERCHOLESTEROLEMIA TECHNIQUE: Contiguous axial scans of 2.5 mm slice thicknesses. One or more dose reduction techniques were used (e.g., automated exposure control, adjustment of mA and/or kv according to patient size, use of iterative reconstruction technique). Evaluation is limited to the non-coronary and non-cardiac findings. Only those areas demonstrated within the [id number] were evaluated. COMPARISON: No relevant prior. FINDINGS: NON-CORONARY CARDIAC FINDINGS: The myocardium, valves and pericardium have a normal appearance. Incidental note is made of extensive coronary artery calcifications. NON-CARDIAC FINDINGS: Lungs: Clear. Pleural spaces: No fluid, pneumothorax or thickening. Mediastinum:The visualized mediastinum is normal with no lymphadenopathy. Pulmonary vessels: Unremarkable. Chest wall: Unremarkable. Upper abdomen and bones: Normal appearance within the field of view. Bones: Spondylosis. CT/Limited Chest CT Cardiac Only IMPRESSION: UNREMARKABLE LIMITED CHEST CT NON-CORONARY AND NON-CARDIAC ANATOMY ONLY. Reading Location: [place] [address] CC: Dr. Salvador Marte MD [employer]: Signed Normal [facility] Calculated very low density lipoprotein (VLDL) cholesterol measurementOrdered By: Salvador Marte on 05-26-2024 Calculated very low density lipoprotein (VLDL) cholesterol measurement 15 mg/dL 5-40 [facility] VLDL Cholesterol 15 mg/dL 5-40 [facility] LDL calc ser/plasOrdered By: Salvador Marte on 05-26-2024 Cholesterol in LDL [Mass/Vol] 75 mg/dL [facility] Comment on above: Fwthqjiqll=572-173 m g/dL & Higher Vpko=223 mg/dL or greater LDL Cholesterol, Calculated 75 mg/dL [facility] Comment on above: Fyqblfmrud=571-437 m g/dL & Higher Brtb=672 mg/dL or greater Lipid Profileon 05-26-2024 CHOL:HDL 2.74 Normal [facility] Comment on above: Order Comment: Order Date: 03/10/24 Order Info: [id number] - LIPID Performed By: #### L 500.4100 #### [facility] Laboratory [address] [place], [place] [address], [address] Cholesterol [Mass/Vol] 142 mg/dL Normal <=200 [place] Comment on above: Order Comment: Order Date: 03/10/24 Order Info: [id number] - LIPID Result Comment: Chol esterol level, Desirable <200 mg/dL Borderline high cholesterol 200-239 mg/dL High cholesterol >=240 mg/dL Recommendations of the NCEP Adult Treatment Panel for the following risk-cutoff thresholds for the [place] population. Performed By: #### L 500.4100 #### [facility] Laboratory [address] [place], [address] Cholesterol in HDL [Mass/Vol] 52 mg/dL Normal [facility] Comment on above: Order Comment: Order Date: 03/10/24 Order Info: [id number] - LIPID Result Comment: Maribell onal Cholesterol Education Program (NCEP) guidelines: <40 mg/dL: Low HDL-cholesterol (major risk factor for CHD) >= 60 mg/dL: High HDL-cholesterol (negative risk factor for CHD) HDL-cholesterol is affected by a number of factors, e.g. smoking, exercise, hormones, sex and age. Performed By: #### L 500.4100 #### [facility] Laboratory [address] [place], [address] Cholesterol in LDL [Mass/Vol] 75 mg/dL Normal [facility] Comment on above: Order Comment: Order Date: 03/10/24 Order Info: [id number] - LIPID Result Comment: Bord rrlcff=257-800 mg/dL Higher Xirl=825 mg/dL or greater Performed By: #### L 500.4100 #### [facility] Laboratory [address] [place], [address] Cholesterol in VLDL [Mass/Vol] 15 mg/dL Normal 5-40 [facility] Comment on above: Order Comment: Order Date: 03/10/24 Order Info: [id number] - LIPID Performed By: #### L 500.4100 #### [facility] Laboratory [address] [place], [address] Triglyceride [Mass/Vol] 75 mg/dL Normal [facility] Comment on above: Order Comment: Order Date: 03/10/24 Order Info: [id number] - LIPID Result Comment: The drugs N-Acetylcysteine and Metamizole may falsely depress this assay. Normal range: <150 mg/dL Borderline High: 150-199 mg/dL High: 200-499 mg/dL Very High: >500 mg/dL Performed By: #### L 500.4100 #### [facility] Laboratory [address] [place], [address] Screening total cholesterol/ high density lipoprotein (HDL) cholesterol ratioOrdered By: Salvador Marte on 05-26-2024 Cholesterol.total/Choles terol in HDL [Mass ratio] 2.74 {ratio} [facility] Serum or plasma cholesterol in HDL measurement (mass/volume)Ordered By: Salvador Marte on 05-26-2024 Cholesterol in HDL [Mass/Vol] 52 mg/dL >40 [facility] Comment on above: National Cholesterol Education Program (NCEP) guidelines:<40 mg/dL: Low HDL-cholesterol (major risk factor for CHD)>= 60 mg/dL: High HDL-cholesterol (negative risk factor for CHD)HDL-cholesterol is affected by a number of factors, e.g. smoking, exercise, hormones, sex and age. Serum or plasma cholesterol measurement (mass/volume)Ordered By: Salvador Marte on 05-26-2024 Cholesterol [Mass/Vol] 142 mg/dL <201 [facility] Comment on above: Cholesterol level, D esirable <200 mg/dLBorderline high cholesterol 200-239 mg/dLHigh cholesterol >=240 mg/dLRecommendations of the NCEP Adult Treatment Panel for the following risk-cutoff thresholds for the [place] population. Triglycerides measurementOrd ered By: Salvador Marte on 05-26-2024 Triglyceride [Mass/Vol] 75 mg/dL <199 [facility] Comment on above: The drugs N-Acetylcy steine and Metamizole may falsely depress this assay. Normal range: <150 mg/dLBorderline High: 150-199 mg/dLHigh: 200-499 mg/dLVery High: >500 mg/dL Venous Duplex US, Unilateral on 05-07-2024 Venous Duplex US, Unilateral [facility] [address] [place] [address] Venous Duplex US, Unilateral 05/07/24 0803 MR#: [id number] Acct: [id number] Name: DARCY MONTERO Rep #: [id number] : 1955 69 From: Mark Tovar MD Attending Dr: Dr. Salvador Marte MD Status: REG CLI Ordering Dr: Salvador Marte MD Date: 05/07/24 Location: CVS Sex: M C Admitted: Reason For Study Reason For Study: Left leg pain RIGHT LEFT CFV is compressible, spontaneous, phasic, competent GSV is normal. and demonstrates normal augmentation. CFV is compressible, spontaneous, phasic, competent, Procedure and demonstrates normal augmentation. This is a venous duplex using B-mode, color flow and FV is compressible, spontaneous, phasic, competent spectral Doppler. and demonstrates normal augmentation. Exam performed in department. POP V is compressible, spontaneous, phasic, competent A preliminary report was called and/or faxed to and demonstrates normal augmentation. Estuardo. T/P Trunk is compressible. PTV is compressible. LT PerV is compressible. Nonvascularized structure noted in the left popliteal fossa that measures 1.33 x 2.85 x 5.95 cm. VL/Venous Duplex US, Unilateral Interpretation Summary Deep veins of the left lower extremity are patent and compressible segmentally. There is no evidence of left lower extremity deep vein thrombosis. Valvular competence appears intact within the proximal deep venous system on the left . The left great saphenous vein appears patent and compressible segmentally. A non-vascular, hypoechoic structure is noted in the left popliteal space, measuring 1.33 cm x 2.85 cm x 5.95 cm. This may represent a popliteal cyst. Clinical correlation is advised. The right common femoral vein is patent and compressible . Ordering Physician: Salvador Marte Referring Physician: Salvador Marte Performed By: Trena Hernandez, RVT 05/07/241932 Date Mark Tovar MD CC: Dr. Salvador Marte MD Date Dictated: 05/07/24802 Date Transcribed: 05/07/241932 [employer]: Signed Normal [facility] Venous duplex ultrasound rep ortOrdered By: Mark Tovar on 05-07-2024 US Vein [facility] [address] [place] [address] Venous Duplex US, Unilateral 05/07/24802 MR#: [id number] Acct: [id number] Name: DARCY MONTERO Rep #:[id number] : 1955 69 From: Mark Tovar MD Attending Dr: Dr. Salvador Marte MD Status: REG CLI Ordering Dr: Salvador Marte MD Aamir e: 05/07/24 Location: CVS Sex: M C Admitted: Reason For Study Reason For Study: Left leg pain RIGHT LEFT CFV is compressible, spontaneous, phasic, competent GSV is normal. and demonstrates normal augmentation. CFV is compressible, spontaneous, phasic, competent, Procedure and demonstrates normal augmentation. This is a venous duplex using B-mode, color flow and FV is compressible, spontaneous, phasic, competent spectral Doppler. and demonstrates normal augmentation. Exam performed in department. POP V is compressible, spontaneous, phasic, competent A preliminary report was called and/or faxed to and demonstrates normal augmentationZhou Marte. T/P Trunk is compressible. PTV is compressible. LT PerV is compressible. Nonvascularized structure noted in the left popliteal fossa that measures 1.33 x 2.85 x 5.95 cm. VL/Venous Duplex US, Unilateral Interpretation Summary Deep veins of the left lower extremity are patent and compressible segmentally. There is no evidence of left lower extremity deep vein thrombosis. Valvular competence appears intact within the proximal deep venous system on the left . The left great saphenous vein appears patent and compressible segmentally. A non-vascular, hypoechoic structure is noted in the left popliteal space, measuring 1.33 cm x 2.85 cm x 5.95 cm. This may represent a popliteal cyst. Clinical correlation is advised. The right common femoral vein is patent and compressible. Ordering Physician: Salvador Marte Referring Physician: Salvador Marte Performed By: Trena Hernandez RVT 05/07/241932 Date _ Mark Tovar MD CC: Dr. Salvador Marte MD ~ Date Dictated: 05/07/24802 Date Transcribed: 05/07/241932 [employer]: Signed [facility] Other Phone: Albumin to globulin ratioOrd ered By: Salvador Marte on 03-05-2024 Albumin/Globulin [Mass ratio] 1.0 {ratio} 0.9-2.4 [facility] Bilirubin, totalOrdered By: Salvador Marte on 03-05-2024 Bilirubin [Mass/Vol] 0.70 mg/dL 0.20-1.00 [facility] Comment on above: For patients on eltr ombopag therapy, use of Dimension [place] TBIL is not recommended. Blood urea nitrogen (BUN)/cr eatinine ratioOrdered By: Salvador Marte on 03-05-2024 Urea nitrogen/Creatinine [Mass ratio] 19.2 mg/mg 12-13 [facility] Carbon dioxide measurementOr dered By: Salvador Marte on 03-05-2024 CO2 [Moles/Vol] 26.0 mmol/L 21.0-32.0 [facility] Chloride measurementOrdered By: Salvador Marte on 03-05-2024 Chloride [Moles/Vol] 106 mmol/L 98-107 [facility] Comprehensive Metabolic Prof ilon 03-05-2024 Albumin [Mass/Vol] 3.5 g/dL Normal 3.2-5.0 [facility] Comment on above: Order Comment: Order Date: 12/16/23 Order Info: [id number] - CMP Order Info: [id number] - LIPID Order Info: [id number] - PSA Performed By: #### L 501.9910, L500.4050, L500.4100 #### [facility] Laboratory [address] [place], [address] Albumin/Globulin [Mass ratio] 1.0 {ratio} Normal 0.9-2.4 [facility] Comment on above: Order Comment: Order Date: 12/16/23 Order Info: [id number] - CMP Order Info: [id number] - LIPID Order Info: [id number] - PSA Performed By: #### L 501.9910, L500.4050, L500.4100 #### [facility] Laboratory [address] [place], [address] ALK P 71 U/L Normal 45-117 [facility] Comment on above: Order Comment: Order Date: 12/16/23 Order Info: [id number] - CMP Order Info: [id number] - LIPID Order Info: [id number] - PSA Performed By: #### L 501.9910, L500.4050, L500.4100 #### [facility] Laboratory [address] [place], [address] ALT [Catalytic activity/Vol] 30 U/L Normal 16-61 [facility] Comment on above: Order Comment: Order Date: 12/16/23 Order Info: [id number] - CMP Order Info: [id number] - LIPID Order Info: [id number] - PSA Performed By: #### L 501.9910, L500.4050, L500.4100 #### [facility] Laboratory [address] [place], [address] AST [Catalytic activity/Vol] 14 U/L Low 15-37 [facility] Comment on above: Order Comment: Order Date: 12/16/23 Order Info: [id number] - CMP Order Info: - LIPID Order Info: [id number] - PSA Performed By: #### L 501.9910, L500.4050, L500.4100 #### [facility] Laboratory [address] [place], [address] Bilirubin [Mass/Vol] 0.70 mg/dL Normal 0.20-1.00 [facility] Comment on above: Order Comment: Order Date: 12/16/23 Order Info: [id number] - CMP Order Info: - LIPID Order Info: [id number] - PSA Result Comment: For patients on eltrombopag therapy, use of Dimension [place] TBIL is not recommended. Performed By: #### L 501.9910, L500.4050, L500.4100 #### [facility] Laboratory [address] [place], [address] BUN/CRE 19.2 RATIO Normal 10-20 [facility] Comment on above: Order Comment: Order Date: 12/16/23 Order Info: [id number] - CMP Order Info: - LIPID Order Info: [id number] - PSA Performed By: #### L 501.9910, L500.4050, L500.4100 #### [facility] Laboratory [address] [place], [address] CA,Total 8.8 mg/dL Normal 8.5-10.1 [facility] Comment on above: Order Comment: Order Date: 12/16/23 Order Info: 07 - CMP Order Info: - LIPID Order Info: [id number] - PSA Performed By: #### L 501.9910, L500.4050, L500.4100 #### [facility] Laboratory [address] [place], [address] Chloride [Moles/Vol] 106 mmol/L Normal 98-107 [facility] Comment on above: Order Comment: Order Date: 12/16/23 Order Info: [id number] - CMP Order Info: [id number] - LIPID Order Info: 1 - PSA Performed By: #### L 501.9910, L500.4050, L500.4100 #### [facility] Laboratory [address] [place], [address] CO2 [Moles/Vol] 26.0 mmol/L Normal 21.0-32.0 [facility] Comment on above: Order Comment: Order Date: 12/16/23 Order Info: [id number] - CMP Order Info: - LIPID Order Info: [id number] - PSA Performed By: #### L 501.9910, L500.4050, L500.4100 #### [facility] Laboratory [address] [place], [address] Creatinine [Mass/Vol] 0.89 mg/dL Normal 0.70-1.30 [facility] Comment on above: Order Comment: Order Date: 12/16/23 Order Info: [id number] - CMP Order Info: [id number] - LIPID Order Info: [id number] - PSA Result Comment: The validity of the calculated GFR GFRAA in patients over 70 years has not been determined. Clinical correlation is essential. Performed By: #### L 501.9910, L500.4050, L500.4100 #### [facility] [address] [place], [address] EST GFR - AA 110 mL/min Normal >60 [facility] Comment on above: Order Comment: Order Date: 12/16/23 Order Info: [id number] - CMP Order Info: [id number] - LIPID Order Info: [id number] - PSA Result Comment: Afri can Salv[place] GFR Calc Performed By: #### L 501.9910, L500.4050, L500.4100 #### [facility] Laboratory [address] [place], [address] GAP 6 Normal 5-15 [facility] Comment on above: Order Comment: Order Date: 12/16/23 Order Info: [id number] - CMP Order Info: - LIPID Order Info: [id number] - PSA Performed By: #### L 501.9910, L500.4050, L500.4100 #### [facility] Laboratory [address] [place], [address] GFR/1.73 sq M.predicted among non-blacks MDRD (S/P/Bld) [Vol rate/Area] 91 mL/min/{1.73_m2} Normal >60 [facility] Comment on above: Order Comment: Order Date: 12/16/23 Order Info: [id number] - CMP Order Info: - LIPID Order Info: [id number] - PSA Result Comment: Non- GFR Calc Performed By: #### L 501.9910, L500.4050, L500.4100 #### [facility] [address] [place], [address] Globulin (S) [Mass/Vol] 3.4 g/dL Normal 2.2-4.2 [facility] Comment on above: Order Comment: Order Date: 12/16/23 Order Info: [id number] - CMP Order Info: [id number] - LIPID Order Info: [id number] - PSA Performed By: #### L 501.9910, L500.4050, L500.4100 #### [facility] [address] [place], [address] Glucose [Mass/Vol] 99 mg/dL Normal 74-106 [facility] Comment on above: Order Comment: Order Date: 12/16/23 Order Info: [id number] - CMP Order Info: [id number] - LIPID Order Info: [id number] - PSA Performed By: #### L 501.9910, L500.4050, L500.4100 #### [facility] [address] [place], [address] Potassium [Moles/Vol] 4.0 mmol/L Normal 3.5-5.1 [facility] Comment on above: Order Comment: Order Date: 12/16/23 Order Info: [id number]- - CMP Order Info: [id number] - LIPID Order Info: [id number] - PSA Performed By: #### L 501.9910, L500.4050, L500.4100 #### [facility] [address] [place], [address] Sodium [Moles/Vol] 138 mmol/L Normal 136-145 [facility] Comment on above: Order Comment: Order Date: 12/16/23 Order Info: [id number] - CMP Order Info: [id number] - LIPID Order Info: [id number] - PSA Performed By: #### L 501.9910, L500.4050, L500.4100 #### [facility] [address] [place], [address] T PROT 6.9 g/dL Normal 6.4-8.2 [facility] Comment on above: Order Comment: Order Date: 12/16/23 Order Info: [id number] - CMP Order Info: [id number] - LIPID Order Info: [id number] - PSA Performed By: #### L 501.9910, L500.4050, L500.4100 #### [facility] [address] [place], [address] Urea nitrogen [Mass/Vol] 17 mg/dL Normal 7-18 [facility] Comment on above: Order Comment: Order Date: 12/16/23 Order Info: [id number] - CMP Order Info: [id number] - LIPID Order Info: [id number] - PSA Performed By: #### L 501.9910, L500.4050, L500.4100 #### [facility] [address] [place], [place], [address] Estimated glomerular filtrat ion rate (GFR) AmericanOrdered By: Salvador Marte on 03-05-2024 Estimated GFR (MDRD) Amer 110 mL/min >60 [facility] Comment on above: GFR Calc Glomerular filtration rate ( GFR) estimationOrdered By: Salvador Marte on 03-05-2024 Estimated GFR (MDRD) Non-Af Amer 91 mL/min >60 [facility] Comment on above: Non- GFR Calc Glucose measurementOrdered B y: Salvador Marte on 03-05-2024 Glucose [Mass/Vol] 99 mg/dL 74-106 [facility] High density lipoprotein (HD L) measurementOrdered By: Salvador Marte on 03-05-2024 Cholesterol in HDL [Mass/Vol] 49 mg/dL >40 [facility] Comment on above: The drugs N-Acetylcy steine and Metamizole may falsely depress this assay. Reference Range HDL <40 mg/dL Low HDL Cholesterol HDL >or= 60 mg/dL High HDL Cholesterol Laboratory - Chemistry and C hemistry - challengeOrdered By: Salvador Marte on 03-05-2024 AST [Catalytic activity/Vol] 14 U/L Low 15-37 [facility] Lipid Profileon 03-05-2024 Cholesterol [Mass/Vol] 209 mg/dL High 200 [place] Comment on above: Order Comment: Order Date: 12/16/23 Order Info: [id number] - CMP Order Info: [id number] - LIPID Order Info: [id number] - PSA Result Comment: <200 mg/dL Desirable 200-240 mg/dL Borderline >240 mg/dL High Risk Performed By: #### L 501.9910, L500.4050, L500.4100 #### [facility] Laboratory [address] [place], [place], [id number] Cholesterol in HDL [Mass/Vol] 49 mg/dL Normal [facility] Comment on above: Order Comment: Order Date: 12/16/23 Order Info: [id number] - CMP Order Info: - LIPID Order Info: [id number] - PSA Result Comment: The drugs N-Acetylcysteine and Metamizole may falsely depress this assay. Reference Range HDL <40 mg/dL Low HDL Cholesterol HDL >or= 60 mg/dL High HDL Cholesterol Performed By: #### L 501.9910, L500.4050, L500.4100 #### [facility] Laboratory [address] [place], [address] Cholesterol in LDL [Mass/Vol] 136 mg/dL High 0-130 [facility] Comment on above: Order Comment: Order Date: 12/16/23 Order Info: [id number] - CMP Order Info: - LIPID Order Info: [id number] - PSA Performed By: #### L 501.9910, L500.4050, L500.4100 #### [facility] Laboratory [address] [place], [place], [id number] Cholesterol in VLDL [Mass/Vol] 24 mg/dL Normal 5-40 [facility] Comment on above: Order Comment: Order Date: 12/16/23 Order Info: [id number] - CMP Order Info: - LIPID Order Info: [id number] - PSA Performed By: #### L 501.9910, L500.4050, L500.4100 #### [facility] Laboratory [address] [place], [address] Triglyceride [Mass/Vol] 121 mg/dL Normal [facility] Comment on above: Order Comment: Order Date: 12/16/23 Order Info: [id number] - CMP Order Info: - LIPID Order Info: [id number] - PSA Result Comment: The drugs N-Acetylcysteine and Metamizole may falsely depress this assay. Serum Triglycerides Reference Interval Normal <150 mg/dL Borderline high 150 - 199 mg/dL High 200 - 499 mg/dL Very High > or = 500 mg/dL Performed By: #### L 501.9910, L500.4050, L500.4100 #### [facility] Laboratory [address] [place], [place], [address] Low density lipoprotein (LDL ) cholesterol measurementOrdered By: Salvador Marte on 03-05-2024 Cholesterol in LDL [Mass/Vol] 136 mg/dL High 0-130 [facility] PSA,Total - Annual Screenon 03-05-2024 PSA,TOT SCREEN 0.70 ng/mL Normal 0.00-4.00 [facility] Comment on above: Order Comment: Order Date: 12/16/23 Order Info: [id number] - CMP Order Info: [id number] - LIPID Order Info: [id number] - PSA Result Comment: This test was performed using the TPSA assay method for the Synap[employer]ense chemistry system. Values obtained with different assay methods cannot be used interchangably. When changing PSA assays in the course of monitoring a patient, additional sequential testing should be carried out to confirm baseline values. Performed By: #### L 501.9910, L500.4050, L500.4100 #### [facility] Laboratory [address] [place], [address] Potassium measurementOrdered By: Salvador Marte on 03-05-2024 Potassium [Moles/Vol] 4.0 mmol/L 3.5-5.1 [facility] Screening prostate specific antigen (PSA) measurementOrdered By: Salvador Marte on 03-05-2024 Prostate Specific Antigen Screen 0.70 ng/mL 0.00-4.00 [facility] Comment on above: This test was perfor med using the TPSA assay method for Number 100 chemistry system. Values obtained with differentassay methods cannot be used interchangably.When changing PSA assays in the course of monitoring apatient, additional sequential testing should be carriedout to confirm baseline values. Serum anion gap measurementO rdered By: Salvador Marte on 03-05-2024 Anion gap [Moles/Vol] 6 mmol/L 5-15 [facility] Serum globulin measurementOr dered By: Salvador Marte on 03-05-2024 Globulin (S) [Mass/Vol] 3.4 g/dL 2.2-4.2 [facility] Serum or plasma alanine calix otransferase (ALT) measurementOrdered By: Salvador Marte on 03-05-2024 ALT [Catalytic activity/Vol] 30 U/L 16-61 [facility] Serum or plasma albumin rogerio urement (mass/volume)Ordered By: Salvador Marte on 03-05-2024 Albumin [Mass/Vol] 3.5 g/dL 3.2-5.0 [facility] Serum or plasma alkaline jamin sphatase measurementOrdered By: Salvador Marte on 03-05-2024 ALP [Catalytic activity/Vol] 71 U/L 45-117 [facility] Serum or plasma calcium rogerio urement (mass/volume)Ordered By: Salvador Marte on 03-05-2024 Calcium [Mass/Vol] 8.8 mg/dL 8.5-10.1 [facility] Serum or plasma cholesterol measurement (mass/volume)Ordered By: Salvador Marte on 03-05-2024 Cholesterol [Mass/Vol] 209 mg/dL High <200 [place] Comment on above: <200 mg/dL Desirable 200-240 mg/dL Borderline >240 mg/dL High Risk Serum or plasma creatinine m easurement (mass/volume)Ordered By: Salvador Marte on 03-05-2024 Creatinine [Mass/Vol] 0.89 mg/dL 0.70-1.30 [facility] Comment on above: The validity of the calculated GFR & GFRAA in patients over 70 years has not been determined. Clinical correlation is essential. Serum or plasma urea nitroge n measurement (mass/volume)Ordered By: Salvador Marte on 03-05-2024 Urea nitrogen [Mass/Vol] 17 mg/dL 7-18 [facility] Sodium levelOrdered By: Johnny Marte on 03-05-2024 Sodium [Moles/Vol] 138 mmol/L 136-145 [facility] Total proteinOrdered By: Luci Marte on 03-05-2024 Protein [Mass/Vol] 6.9 g/dL 6.4-8.2 [facility] Triglycerides measurementOrd ered By: Salvador Marte on 03-05-2024 Triglyceride [Mass/Vol] 121 mg/dL <199 [facility] Comment on above: The drugs N-Acetylcy steine and Metamizole may falsely depress this assay.Serum Triglycerides Reference Interval Normal <150 mg/dL Borderline high 150 - 199 mg/dL High 200 - 499 mg/dL Very High > or = 500 mg/dL Very low density lipoprotein (VLDL) cholesterol measurementOrdered By: Salvador Marte on 03-05-2024 VLDL Cholesterol 24 mg/dL 5-40 [facility] Basophil percentageOrdered B y: Jose Luis Marte on 01-17-2023 Bilirubin [Mass/Vol] 0.40 mg/dL 0.20-1.00 [facility] Comment on above: For patients on eltr ombopag therapy, use of Dimension [place] TBIL is not recommended. Chloride [Moles/Vol] 107 mmol/L 98-107 [facility] Cholesterol [Mass/Vol] 226 mg/dL <200 [place] Comment on above: <200 mg/dL Desirable 200-240 mg/dL Borderline >240 mg/dL High Risk Glucose [Mass/Vol] 117 mg/dL 74-106 [facility] Comment on above: Fasting Glucose resu lt from 100 to 125 mg/dL suggests IMPAIRED HOMEOSTASIS per A.D.A. criteria. Potassium [Moles/Vol] 4.7 mmol/L 3.5-5.1 [facility] Comment on above: Slight Hemolysis, Re sult may be falsely increased. Protein [Mass/Vol] 7.0 g/dL 6.4-8.2 [facility] Sodium [Moles/Vol] 142 mmol/L 136-145 [facility] Triglyceride [Mass/Vol] 494 mg/dL <199 [facility] Comment on above: The drugs N-Acetylcy steine and Metamizole may falsely depress this assay. TRIGLYCERIDE IS GREATER THAN 400 mg/dL. LDL RESULT IS INVALID AND WILL NOT BE REPORTED.Serum Triglycerides Reference Interval Normal <150 mg/dL Borderline high 150 - 199 mg/dL High 200 - 499 mg/dL Very High > or = 500 mg/dL Laboratory - Chemistry and C hemistry - challengeOrdered By: Jose Luis Marte on 01-17-2023 ALP [Catalytic activity/Vol] 63 U/L 45-117 [facility] ALT [Catalytic activity/Vol] 31 U/L 16-61 [facility] CO2 [Moles/Vol] 28.0 mmol/L 21.0-32.0 [facility] Globulin (S) [Mass/Vol] 3.5 g/dL 2.2-4.2 [facility] Urea nitrogen/Creatinine [Mass ratio] 18.9 mg/mg 10-20 [facility] No Panel InformationOrdered By: Jose Luis Marte on 01-17-2023 Estimated GFR (MDRD) Amer 108 mL/min >60 [facility] Comment on above: GFR Calc Estimated GFR (MDRD) Non-Af Amer 89 mL/min >60 [facility] Comment on above: Non- GFR Calc Prostate Specific Antigen Screen 0.97 ng/mL 0.00-4.00 [facility] Comment on above: This test was perfor med using the TPSA assay method for Number 100 chemistry system. Values obtained with differentassay methods cannot be used interchangably.When changing PSA assays in the course of monitoring apatient, additional sequential testing should be carriedout to confirm baseline values. Serum or plasma albumin rogerio urement (mass/volume)Ordered By: Jose Luis Marte on 01-17-2023 Albumin [Mass/Vol] 3.5 g/dL 3.2-5.0 [facility] Serum or plasma albumin/glob ulin mass ratioOrdered By: Jose Luis Marte on 01-17-2023 Albumin/Globulin [Mass ratio] 1.0 {ratio} 0.9-2.4 [facility] Serum or plasma calcium rogerio urement (mass/volume)Ordered By: Jose Luis Marte on 01-17-2023 Calcium [Mass/Vol] 8.6 mg/dL 8.5-10.1 [facility] Serum or plasma cholesterol in HDL measurement (mass/volume)Ordered By: Jose Luis Marte on 01-17-2023 Cholesterol in HDL [Mass/Vol] 41 mg/dL >40 [facility] Comment on above: The drugs N-Acetylcy steine and Metamizole may falsely depress this assay. Reference Range HDL <40 mg/dL Low HDL Cholesterol HDL >or= 60 mg/dL High HDL Cholesterol Serum or plasma cholesterol in VLDL measurement (mass/volume)Ordered By: Jose Luis Marte on 01-17-2023 Cholesterol in VLDL [Mass/Vol] [facility] Comment on above: Test not performed Serum or plasma creatinine m easurement (mass/volume)Ordered By: Jose Luis Marte on 01-17-2023 Creatinine [Mass/Vol] 0.90 mg/dL 0.70-1.30 [facility] Comment on above: The validity of the calculated GFR & GFRAA in patients over 70 years has not been determined. Clinical correlation is essential. Serum or plasma low density lipoprotein (LDL) cholesterol measurement (mass/volume)Ordered By: Jose Luis Marte on 01-17-2023 Cholesterol in LDL [Mass/Vol] [facility] Comment on above: Test not performed Serum or plasma urea nitroge n measurement (mass/volume)Ordered By: Jose Luis Marte on 01-17-2023 Urea nitrogen [Mass/Vol] 17 mg/dL 7-18 [facility] Thin prep Papanicolaou smear with manual screeningOrdered By: Jose Luis Marte on 01-17-2023 Thin prep Papanicolaou smear with manual screening 18 U/L 15- [facility] Comment on above: Slight Hemolysis, Re sult may be falsely increased. Thin prep Papanicolaou smear with manual screening 7 5-15 [facility] Microbiology: Culture, R/O S trep Aon 07-30-2016 GE use only - for LinkLogic import when terms are not otherwise specified . Invalid Interpretation Code [facility] Work Phone: Office Visit: UC: Headache, cough, sore throaton 07-28-2016 Documentation of current medications (procedure) Done Invalid Interpretation Code [facility] Work Phone: [phone] Tobacco smoking status NHIS Never Invalid Interpretation Code [facility] Work Phone: [phone] Tobacco use CPHS Never smoker Invalid Interpretation Code [facility] Work Phone: [phone] Vital Signs Date Time Vital Sign Value Performing Clinician Elliot greenwood 09-01-2024 15:57-0400 Body height 172.[address] Salvador Marte MD Work Phone: [facility] 09-01-2024 15:57-0400 Body mass index (BMI) [Ratio] 34.3 kg/m2 Dr. Salvador Marte MD Work Phone: [facility] 09-01-2024 15:57-0400 Body weight 102.[address] Salvador Marte MD Work Phone: [facility] 09-01-2024 15:57-0400 Diastolic blood pressure 78 mm[Hg] Dr. Salvador Marte MD Work Phone: [facility] 09-01-2024 15:57-0400 Heart rate 80 /min Dr. Salvador Marte MD Work Phone: [facility] 09-01-2024 15:57-0400 Respiratory rate 16 /min Dr. Salvador Marte MD Work Phone: [facility] 09-01-2024 15:57-0400 Systolic blood pressure 146 mm[Hg] Dr. Salvador Marte MD Work Phone: [facility] 12-22-2022 08:57-0400 Heart rate 101 /min Dr. Jose Luis Marte Work Phone: [facility] 12-22-2022 08:24-0400 Body temperature 100.4 [degF] Dr. Jose Luis Marte Work Phone: [facility] 12-22-2022 08:24-0400 Body weight 108.[address] Jose Luis Marte Work Phone: [facility] 12-22-2022 08:24-0400 Diastolic blood pressure 105 mm[Hg] Dr. Jose Luis Marte Work Phone: [facility] 12-22-2022 08:24-0400 Respiratory rate 16 /min Dr. Jose Luis Marte Work Phone: [facility] 12-22-2022 08:24-0400 SaO2% (BldA) [Mass fraction] 96 % Dr. Jose Luis Marte Work Phone: [facility] 12-22-2022 08:24-0400 Systolic blood pressure 155 mm[Hg] Dr. Jose Luis Marte Work Phone: [facility] 07-28-2016 10:56-0400 BMI (Body Mass Index) 38.39 kg/m2 Ashutosh Lundberg [employer] [facility] Work Phone: 07-28-2016 10:56-0400 Body Temperature 98.2 [degF] Ashutosh Lundberg [employer] [facility] Work Phone: 07-28-2016 10:56-0400 BP Diastolic 114 mm[Hg] Ashutosh Lundberg [employer] [facility] Work Phone: 07-28-2016 10:56-0400 BP Systolic 184 mm[Hg] Ashutosh Lundberg [employer] [facility] Work Phone: 07-28-2016 10:56-0400 Height 175.26 cm Ashutosh Lundberg [employer] [facility] Work Phone: 07-28-2016 10:56-0400 Pulse (Heart Rate) 80 /min Ashutosh Lundberg [employer] Work Phone: 07-28-2016 10:56-0400 Pulse Oximetry 99 % Ashutosh Lundberg [employer] [facility] Work Phone: 07-28-2016 10:56-0400 Respiratory Rate 16 /min Ashutosh Lundberg [employer] [facility] Work Phone: 07-28-2016 10:56-0400 Weight 117.94 kg Ashutosh Lundberg [employer] [facility] Work Phone: Encounters Encounter Date Encounter Type Care Provider Facility Start: 09-08-2024 ambulatory Leonid Camp Facility:[facility] Start: 09-01-2024 End: 09-01-[address] Leonid Camp MD -Laboratory Work Phone: Start: 09-01-2024 End: 09-01-2024 ambulatory Leonid Camp Facility:[facility] Start: 09-01-2024 End: 09-01-[address] Leonid Camp MD -[facility] Work Phone: Start: 09-01-2024 End: 09-01-[address] Salvador Marte MD Work Phone: -[facility] Start: 07-27-2024 Non-patient / Non-visit Dr. Leonid Camp MD -[facility] Work Phone: Start: 07-27-[address] Mehran Marte MD -[facility] Work Phone: Start: 07-27-2024 ambulatory Leonid Camp Facility:[facility] Start: 05-26-2024 End: 05-26-[address] Salvador Marte MD Work Phone: [facility] Work Phone: Start: 05-26-2024 End: 05-26-[address] [facility] Start: 05-26-2024 End: 05-26-2024 ambulatory Salvador Marte Facility:[facility] Start: 05-07-2024 End: 05-07-[address] Salvador Marte MD Work Phone: [facility] Work Phone: Start: 05-07-2024 End: 05-07-[address] Salvador Marte MD -Cardiovascular Services Work Phone: Start: 05-07-2024 End: 05-07-2024 ambulatory Salvador Marte Facility:[facility] Start: 03-05-2024 End: 03-05-[address] [facility] Start: 03-05-2024 End: 03-05-2024 ambulatory Salvador Marte Facility:[facility] Start: 01-17-2023 End: 11-24-[address] Jose Luis Marte Work Phone: [facility] Work Phone: Start: 01-17-2023 End: 01-17-[address] Jose Luis Marte Work Phone: [facility] Start: 12-22-2022 End: 12-22-[address] Jose Luis Marte Work Phone: [facility] Work Phone: Procedures Date Procedure Procedure Detail Performing Clinician Start: 07-27-2024 CT angiography of coronary arteries Dr. Salvador Marte MD Work Phone: Start: 07-28-2016 End: 07-28-2016 Rapid strep test Ashutosh Lundberg [employer] Plan of Treatment Date Care Activity Detail Author Start: 09-01-2024 Evaluation of diagnostic study results [facility] Start: 07-28-2016 End: 07-28-2016 Appointment Appointment [facility] Work Phone: Start: 07-28-2016 End: 07-28-2016 Streptococcus.beta-hemolyti c [Presence] in Throat by Organism specific culture *Culture, R/O Strep A Swab [facility] Work Phone: Basic metabolic 2008 panel with ionized calcium - Serum or Plasma [facility] Catheterization of l eft heart [facility] CBC W Auto Different ial panel - Blood [facility] Payers Date Payer Category Payer Unknown 2024 Medicare [id number] 2024 Self-pay [id number] Unknown [id number] Unknown [id number] 2.16.8 [id number] Unknown [id number] 2.16.8 [id number] Unknown [id number] 2.16.8 [id number] Unknown [id number] 2.16.8 [id number] Unknown [id number] 2.16.8 [id number] Unknown [id number] 2.16.8 [id number] Unknown [id number] 2.16.8 [id number] Unknown [id number] 2.16.8 [id number] Social History Date Type Detail Facility Tobacco smoking stat [facility] Unknown if ever smoked [facility] Work Phone: Start: 1955 Sex Assigned At Male [facility] Tobacco smoking stat [facility] Unknown if ever smoked [facility] Work Phone: Start: 05-17-2024 End: 06-01-2024 Sex Male (finding) [facility] Start: 08-25-2024 [facility] Evaluation note 09-01-2024 Note Date & Type Note Facility 09-01-2024 Evaluation note Diagnosis Onset Date Resolution Abnormal cardiac CT angiography acute September 01, 2024 2 :22pm Essential (primary) hypertension acute September 01, 2024 2 :22pm [facility] Work Phone: Progress note 09-01-2024 Note Date & Type Note Facility 09-01-2024 Progress note [facility] Progress note 09-01-2024 Note Date & Type Note Facility 09-01-2024 Progress note Note Date/Time September 01, 2024 4:20pm [facility] [address] [place] [address] [address] [place] [address] OFFICE VISIT Date of Service: 09/01/24 MR#: [id number] Acct: [id number] Name: DARCY MONTERO Rep #: [id number] : 1955 Provider: Dr. Kalyan Camp MD Age/Sex: 69/M Location: [facility] Status: Signed HPI HPI History of Present Illness Details: 69-year-old man with a history of hypertension hyperlipidemia on therapy with a strong family history of coronary artery disease. His brother had a markedly elevated coronary calcium score and he went and had a coronary calcium score which demonstrated marked elevation with a left main demonstrating 62, left anterior descending artery with 5700, circumflex artery with 13, right coronary artery with 78. His total Agatston score was 5859. He denies any chest pain orshortness of breath or paroxysmal nocturnal dyspnea pedal edema no neck arm or jaw discomfort suggest angina. He has been compliant with his medications his physical exam is significant for soft systolic murmur noted left sternal border his electrocardiogram demonstrates sinus rhythm with a rate of 78 bpm. His lipid profile demonstrates a total cholesterol 142 HDL of 52 LDL of 75. Intake Vital Signs 09/01/24 15:57 Height 5 ft 8 in Weight: 226 lb BMI 34.3 BP 146/78 H Blood Pressure Location Lt brachial Position Sitting Respiration 16 Pulse 80 Pulse Source Monitor Intake Visit Reasons: ABN CCTA (ESTUARDO) Second Time Worker Required: No Accompanied by: Self Is patient in pain?: No Allergies No Known Allergies Allergy (Unverified 09/01/24 15:53) Medications ?Medication ?Instructions ?Recorded ?Confirmed ?Type multivitamin 1 tab PO DAILY 12/22/2211/18 History omega-3 fatty acids 1,250 mg 1,250 mg PO DAILY 3 09/01/24 History capsule amlodipine 10 mg tablet 10 mg PO QDAY 08/25/2409/01 History losartan 100 mg tablet 100 mg PO QDAY 08/25/2411/18 History aspirin 81 mg tablet,delayed 81 mg PO QDAY 09/01/24 History release (Adult Aspirin Regimen) rosuvastatin 20 mg tablet 20 mg PO QDAY 09/01/2409/01 History Have you fallen in the past year?: No PFSH Medical History CAD (coronary artery disease) Abnormal cardiac CT angiography Essential (primary) hypertension Surgical History No history of previous surgery Family History Father Heart disease Myocardial infarction Brother Heart disease Social History Smoking Status: Former smoker alcohol intake: current alcohol intake frequency: holidays/special occasions only substance use type: does not use ROS Const Const: Negative for fatigue, weakness, headache(s), daytime sleepiness or difficulty sleeping ENT ENT: Negative for headache(s), dizziness or Nosebleed/epistaxis Cardio Chest Pain: No Palpitations: No Edema: None Resp Respiratory: Negative for SOB with activity, SOB at rest, SOB orthopnea\SOB lying down or Cough GI GI: Negative nausea, vomiting or heartburn Neuro Neuro: Negative for dizziness, lightheadedness, near syncope, headache(s) or weakness Endo Endo: Negative for fatigue Cardiology Exam Const Appearance: cooperative, healthy appearing, no acute distress, well developed and well groomed Nutritional Appearance: average body habitus and well nourished Orientation: alert, awake and oriented x3 Head Head: normal to inspection, normocephalic and atraumatic Ears: hearing grossly normal bilaterally and external ears normal Nose: external nose normal, nares normal, nasal mucous membranes and turbinates normal, septum normal and no nasal discharge Face and Sinus: face symmetric Mouth: oral mucosae normal, tongue normal, oropharynx normal and moist mucous membranes Teeth and gingiva: dentition normal Throat: posterior oropharynx normal, tonsils normal and uvula midline Eyes General: appearance normal, both eyes and all related structures Eyelids: eyelids normal Conjunctivae: conjunctivae normal Pupils: PERRL, normal by confrontation and accommodation normal EOM: EOM intact bilaterally Neck Neck: normal visual inspection, trachea midline and no JVD JVD: +5 Carotids: normal carotid upstroke and bounding pulses Chest Chest inspection: normal inspection of the chest, symmetric chest movement and normal respiratory effort Auscultation: Bilateral: Clear to Auscultation Cardio Palpation: normal PMI Rate: regular rate Rhythm: regular rhythm Heart sounds: S1 normal, S2 normal, murmur and normal, physiologic split S2; Negative rub or gallop Murmur: Grade 1/6 GI GI: normal to inspection, soft, no hepatosplenomegaly and bowel sounds present Neuro General: patient alert, patient awake, patient oriented x3, gait normal, moves all extremities and no focal sensory deficit Skin Skin: no rashes or lesions noted Extremities Pulses: Normal: Right Femoral Pulse, Left Femoral Pulse, Right Dorsalis Pedis Pulse, Left Dorsalis Pedis Pulse, Right Posterior Tibial Pulse, Left Posterior Tibial Pulse, Right Radial Pulse and Left Radial Pulse Lower Extremity Edema: None: Bilateral Musculoskel Musculoskeletal: No joint tenderness Psych Psychological: normal affect Supplemental Info Supplemental Information Coronary Angiography 08/09/24 Findings Coronary Artery Left Main (LM): 62 Left Anterior Descending (LAD): 5,706 Left Circumflex (LCX): 13 Right Coronary Artery (RCA): 78 Total Agatston Score: 5,859 Conclusion: Severe single-vessel disease with moderate disease in the other vessels. Labs: LDL Cholesterol 136 mg/dL (0-130) H HDL Cholesterol 52 mg/dL (40-) Cholesterol 142 mg/dL (<=200) Triglycerides 75 mg/dL (-199) Diagnostics: Coronary Angiography CT Venous Doppler Study Pulmonary: No Data to Display Past Visits: Cardiology Visit 09/01/24 Assessment and Plan Assessment and Plan (1) Abnormal cardiac CT angiography: Status: Acute Plan: Patient had a cardiac CT done which demonstrated markedly elevated calcium scoreespecially in the LAD distribution. With the family history my recommendation be for us to proceed with a left heart catheterization. The risk benefits and alternatives have and explained to him he understands and agrees to proceed. Depending on the findings further recommendations will be made. He will continue with risk factor modification based on his aggressive lipid-lowering protocol. (2) Essential (primary) hypertension: Status: Acute Plan: He does have a history of hypertension his blood pressure appears to be under fairly good control the plan is to continue him on the current medical therapy without any major changes. Orders: Orders 12 Lead EKG performed by [facility] Today I10 - Essential (primary) hypertension, I25.10 - Atherosclerotic heart disease of [place] coronary artery without angina pectoris, R93.1 - Abnormal findings on diagnostic imaging of heart and coronary circulation Plan Details Follow Up: 4 Months (sd) Coding Level of Care Code Off vis,new,level [address] angiography R93.1 Essential (primary) hypertension I10 Coding Level of Care Code Off vis,new,level [address] angiography R93.1 Essential (primary) hypertension I10 Clinical Quality Measures Falls Risk Screening/Assistive Devices Have you fallen in the past year?: No 09/01/24 1620 <Electronically signed by Leonid Sandoval D> Date _ Leonid Camp MD Cosigner Signature: Date (if applicable) CC: Dr. Salvador Marte MD ~ [facility] Work Phone: Evaluation note Note Date & Type Note Facility Evaluation note No assessment information availa ble [facility] Work Phone: Evaluation note Note Date & Type Note Facility Evaluation note Diagnosis Onset Date Rash acute [facility] Work Phone: Reason for referral (narrative) Note Date & Type Note Facility Reason for referral (narrative) No reason for referral information available [facility] Work Phone: Chief Complaint and Reason for Visit Chief Complaint RASH/SWELLING/ITCHIN G Reason for Visit Rash Chief Complaint Admit Date EORDER March 05, 2024 7 :36am Pain May 07, 2024 7:5 3am Chief Complaint Admit Date EORDER March 05, 2024 7 :36am Pain May 07, 2024 7:5 3am EORDER- FASTING May 26, 2024 8:24 am Chief Complaint Admit Date Pain May 07, 2024 7:5 3am LEFT LEG PAIN May 07, 2024 8:0 3am EORDER- FASTING May 26, 2024 8:24 am HYPERCHOLESTERMIA July 27, 2024 2:32p m CT CALCIUM SCORING July 27, 2024 2:35p m ABN CCTA (ESTUARDO) September 01, 2024 2:22p m Reason for Visit Admit Date Abnormal cardiac CT angiography August 2:22pm Essential (primary) hypertension August 2:22pm Chief Complaint Admit Date EORDER- FASTING May 26, 2024 8:24 am HYPERCHOLESTERMIA July 27, 2024 2:32p m CT CALCIUM SCORING July 27, 2024 2:35p m ABN CCTA (ESTUARDO) September 01, 2024 2:22p m E-ORDER September 01, 2024 4:37p m Family History Relationship Condition Age at Onset Recorded Date/T jerome father Cardiac disease Unknown Myocardial infarction Unknown brother Cardiac disease Unknown Summary Purpose Advance Directives No Advanced Directives Records Found Additional Source Comments Goals (unrecognized section and content) Goals may be documented in a n alternate sectionGoals may be documented in an alternate sectionGoals may be documented in an alternate sectionGoals may be documented in an alternate sectionGoals may be documented in an alternate sectionGoals may be documented in an alternate section Care Teams (unrecognized sec tion and content) Team Status: Active Member Role Status Dates Dr. Samir Murphy MD Family Provider Active Dr. Jose Luis Marte MD Primary Care Provider Activ e Team Status: Inactive Member Role Status Dates Dr. Jose Luis Marte MD Primary Care Provider, Refe ing Provider Active Samir Fountain DRILL SHARPENER OPERATOR, DRILL SHARPENER OPERATOR-C Attending Provider Active Team Status: Inactive Member Role Status Dates Dr. Jose Luis Marte MD Primary Care Provider Activ e Noel Melendez MD Attending Provider Active Team Status: Active Member Role Status Dates Dr. Salvador Marte MD Primary Care Provider Acti ve Team Status: Inactive Member Role Status Dates Dr. Salvador Marte MD Primary Care Provider Acti ve Start: March 05, 2024 End: March 05, 2024 Dr. Salvador Marte MD Attending Provider Active Start: March 05, 2024 End: March 05, 2024 Dr. Salvador Marte MD Referring Provider Active Start: March 05, 2024 End: March 05, 2024 Team Status: Inactive Member Role Status Dates Dr. Salvador Marte MD Primary Care Provider Acti ve Start: May 07, 2024 End: May 07, 2024 Dr. Salvador Marte MD Attending Provider Active Start: May 07, 2024 End: May 07, 2024 Dr. Salvador Marte MD Referring Provider Active Start: May 07, 2024 End: May 07, 2024 Team Status: Inactive Member Role Status Dates Dr. Salvador Marte MD Primary Care Provider Acti ve Start: May 26, 2024 End: May 26, 2024 Dr. Salvador Marte MD Attending Provider Active Start: May 26, 2024 End: May 26, 2024 Dr. Salvador Marte MD Referring Provider Active Start: May 26, 2024 End: May 26, 2024 Team Status: Active Member Role/Relationship Status Dates Dr. Salvador Marte MD Primary Care Provider Acti ve Team Status: Inactive Member Role/Relationship Status Dates Dr. Salvador Marte MD Primary Care Provider Acti ve Start: May 07, 2024 End: May 07, 2024 Dr. Salvador Marte MD Attending Provider Active Start: May 07, 2024 End: May 07, 2024 Dr. Salvador Marte MD Referring Provider Active Start: May 07, 2024 End: May 07, 2024 Team Status: Active Member Role/Relationship Status Dates Dr. Mark Tovar MD Attending Provider Active Start: May 07, 2024 Dr. Salvador Matre MD Referring Provider Active Start: May 07, 2024 Team Status: Inactive Member Role/Relationship Status Dates Dr. Salvador Marte MD Primary Care Provider Acti ve Start: May 26, 2024 End: May 26, 2024 Dr. Salvador Marte MD Attending Provider Active Start: May 26, 2024 End: May 26, 2024 Dr. Salvador Marte MD Referring Provider Active Start: May 26, 2024 End: May 26, 2024 Team Status: Active Member Role/Relationship Status Dates Dr. Salvador Marte MD Primary Care Provider Acti ve Start: July 27, 2024 Dr. Salvador Marte MD Attending Provider Active Start: July 27, 2024 Dr. Salvador Marte MD Referring Provider Active Start: July 27, 2024 Team Status: Active Member Role/Relationship Status Dates Dr. Salvador Marte MD Primary Care Provider Acti ve Start: July 27, 2024 Dr. Leonid Camp MD Attending Provider Active S tart: July 27, 2024 Dr. Leonid Camp MD Referring Provider Active S tart: July 27, 2024 Team Status: Inactive Member Role/Relationship Status Dates Dr. Salvador Marte MD Primary Care Provider Acti ve Start: September 01, 2024 End: September 01, 2024 Dr. Salvador Marte MD Referring Provider Active Start: September 01, 2024 End: September 01, 2024 Dr. Leonid Camp MD Attending Provider Active S tart: September 01, 2024 End: September 01, 2024 Team Status: Inactive Member Role/Relationship Status Dates Dr. Salvador Marte MD Primary Care Provider Acti ve Start: May 26, 2024 End: May 26, 2024 Dr. Salvador Marte MD Attending Provider Active Start: May 26, 2024 End: May 26, 2024 Dr. Salvador Marte MD Referring Provider Active Start: May 26, 2024 End: May 26, 2024 Team Status: Active Member Role/Relationship Status Dates Dr. Salvador Marte MD Primary Care Provider Acti ve Start: July 27, 2024 Dr. Salvador Marte MD Attending Provider Active Start: July 27, 2024 Dr. Salvador Marte MD Referring Provider Active Start: July 27, 2024 Team Status: Active Member Role/Relationship Status Dates Dr. Salvador Marte MD Primary Care Provider Acti ve Start: July 27, 2024 Dr. Leonid Camp MD Attending Provider Active S tart: July 27, 2024 Dr. Leonid Camp MD Referring Provider Active S tart: July 27, 2024 Team Status: Inactive Member Role/Relationship Status Dates Dr. Salvador Marte MD Primary Care Provider Acti ve Start: September 01, 2024 End: September 01, 2024 Dr. Salvador Marte MD Referring Provider Active Start: September 01, 2024 End: September 01, 2024 Dr. Leonid Camp MD Attending Provider Active S tart: September 01, 2024 End: September 01, 2024 Team Status: Inactive Member Role/Relationship Status Dates Dr. Salvador Marte MD Primary Care Provider Acti ve Start: September 01, 2024 End: September 01, 2024 Dr. Leonid Camp MD Attending Provider Active S tart: September 01, 2024 End: September 01, 2024 Dr. Leonid Camp MD Referring Provider Active S tart: September 01, 2024 End: September 01, 2024 (unrecognized sect ion and content) No Status Records Found INFORMATION SOURCE (unrecogn ized section and content) DATE CREATED AUTHOR 09/05/2024 [facility] FOR RECORDS PERTAINING TO PATIENTS WHO ARE OR HAVE BEEN ENROLLED IN A CHEMICAL DEPENDENCY/SUBSTANCEABUSE PROGRAM, SOME INFORMATION MAY BE OMITTED. This clinical summary was aggregated from multiple sources. Caution should be exercised in using it in the provision of clinical care. This summary normalizes information from multiple sources, and as a consequence, information in this document may materially change the coding, format and clinical context of patient data. In addition, data may be omitted in some cases. CLINICAL DECISIONS SHOULD BE BASED ON THE PRIMARY CLINICAL RECORDS. [facility] [employer] [facility]. provides no warranty or guarantee of the accuracy or completeness of information in this document.
--- NOTE | 2024-09-08 10:00 | EKG12_ITS ---
Test Reason : p Blood Pressure : */* mmHG Vent. Rate : 69 BPM Atrial Rate : 69 BPM P-R Int : 156 ms QRS Dur : 100 ms QT Int : 412 ms P-R-T Axes : 59 42 32 degrees QTcB Int : 441 ms Normal sinus rhythm Normal ECG When compared with ECG of 01-Sep-2024 16:02, No significant change was found Confirmed by Tashi Blandon ([id number]), order editor TAIWO JETT ([id number]) on 09/09/2024 8:33:48 AM Referred By: Leonid Camp Confirmed By: Tashi Blandon
[2024-09-08] MEDS: 0.9% Normal Saline (1000mL) 1,000 ML 150 ML IV (10:44)
--- NOTE | 2024-09-08 14:09 | CRPHASE1_ITS ---
Patient Communication Patient Information PHII Cardiac Rehab Discussed with Patient:: Yes Guide to Cardiac Rehab Given to Patient:: Yes Cardiac Rehab Facility Choice List Given to Patient:: Yes Communication to Cardiac Rehab Choice Program [facility] CR PHII:: Communication Given to CR Attendant [place]:: Rasheed Odom Phase II Cardiac Rehab:: Yes Sessions:: 36 sessions - 3 days/wk, 12 weeks Cardiac Rehabilitation Info Program Information Cardiac Rehabilitation Program Information: Cardiac Rehab The cardiac rehab team at [facility] consists of highly skilled exercise physiologists, nurses, respiratory therapists and physicians working together with you. Our purpose is to help you have a full recovery and achieve the goals you set for yourself. Over the years many of our patients have returned to activities they assumed they would never do again! We can help restore your confidence and motivation to make lifestyle changes that can have a significant impact on your health and quality of life! We can help answer questions and concerns you may have about exercise, lifestyle, medications, diet, stress and anxiety which are common following a hospitalization. WE monitor ECG and vital signs during exercise and discuss your progress with you and report to your physician(s). Cardiac Rehab is proven to help reduce readmissions, improve functional capacity and lower recurrence of problems with your heart. Our Cardiac Rehab program is Certified by the [place] [employer] Pulmonary [employer] (AACVPR) and Accredited by the [place] [employer] through our [facility]. You can contact us at . We invite you to call us with your questions or to get started in our program. If you have other questions or concerns be sure to ask your physician/provider during your follow-up visit. WE look forward to seeing you!
--- NOTE | 2024-09-08 14:09 | CRPH1.INSTRU ---
General Education Discussed with Patient CAD and cardiac anatomy and function:: Patient communicates acknowledgment Explanation of diagnoses and procedures:: Patient communicates acknowledgment Sign/Symptoms of UT:: Patient communicates acknowledgment Antiplatelet therapy: Patient communicates acknowledgment Proper use of NTG-SL: Patient communicates acknowledgment Emergency procedures and activation of EMS: Patient communicates acknowledgment Compliance of all prescribed medications: Patient communicates acknowledgment Smoking Risk Factors Patient Nicotine/Smoking Risk Factors Are:: Never smoked Dyslipidemia Risk Factors Patient Dyslipidemia Risk Factors Are:: Total Cholesterol, Triglycerides, HDL and LDL Recommendations Recommendations Include:: Lipid profile not available Response Code Dyslipidemia Response Code:: Patient communicates acknowledgment Overweight/Obesity Risk Factors Patient Overweight/Obesity Risk Factors Are:: Obesity - > or = 30 Recommendations Recommendations Include:: Weight loss of 5-10%, Reduced calorie diet and Exercise 5-7 times/week Response Code Overweight/Obesity:: Patient communicates acknowledgment Hypertension Recommendations Recommendations Include:: Maintain BP <130/85 and Decrease/maintain normal body weight Response Code Hypertension:: Patient communicates acknowledgment Sedentary Risk Factors Patient Sedentary Risk Factors Are:: Lack of regular exercise Recommendations Recommendations Include:: Aerobic exercise 5-7 times/week for 20-30 minutes continuously, Benefits of regular exercise, Discussed home walking program and Monitored Outpatient Cardiac Rehab Response Code Sedentary Response Code:: Patient communicates acknowledgment
[2024-09-08 16:13] LABS: ACT Activated Clotting Time 256 sec (74-137)
[2024-09-08 16:13] LABS: ACT Activated Clotting Time 268 sec (74-137)
--- OUTSIDE RECORDS SUMMARY | 2024-09-08 19:00 | XMS RPT_ITS | CCD ---
Author Organization [facility] Care Team Providers Care Dimension Specification Inspector Name Role Phone Laura Coronel LPN Unavailable Unavailab marcio Lundberg TRAP PULLER-C, Ashutosh Lee Unavailable Unavailable Dr. Jose Luis Marte Primary Care Provider [phone] Dr. Jose Luis Marte Referring Provider [facility] LOGGING SUPERINTENDENT, LOGGING SUPERINTENDENT-C Samir Garibay Attending Provider Estuardo TAN, Dr. Franco Primary Care Provider Dr. Salvador Marte MD Attending Provider [phone] Dr. Salvador Marte MD Referring Provider Estuardo TAN, Dr. Franco Primary Care Provider Dr. Salvador Marte MD Attending Provider Dr. Salvador Marte MD Referring Provider La TAN, Dr. Mark Lee Attending Provider Dr. Leonid Camp MD Attending Provider Conrado TAN, Dr. Jaquez Referring Provider [phone] Leonid Camp Referring Unavailable Salvador Marte Primary [...] {tbl} PO DAILY December 22, 2022 12:00am Sheridan-3 Fatty Acids (5 sources) Start: 12-22-2022 take 1 capsule by mouth once daily Sheridan-3 Fatty Acids 1,250 mg capsule Active 1250 mg PO DAILY December 22, 2022 12:00am Start: 12-22-2022 take 1250 mg by mouth once mukund ly Sheridan-3 Fatty Acids Active 1250 MG PO DAILY [...] daily for the next 4 days AZITHROMYCIN [id number] Ashutsoh Lundberg TRAP PULLER-C cephalexin 500 mg oral tablet (5 sources) [...] Coronary arteriosclerosis; Translations: [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] Onset: 09-01-2024 [...] Auto (Unsp spec) [#/Vol] 2.70 10*3/uL 0.83-4.51 [facility] Absolute neutrophil countOrd ered By: Leonid Camp on 09-01-2024 Neutrophils (Bld) [#/Vol] 5.6 10*3/uL 2.0-7.7 [facility] Anion gap in Serum or Plasma Ordered By: Leonid Camp on 09-01-2024 Anion gap [Moles/Vol] 14 mmol/L 5-15 [facility] Automated lymphocyte count a s percentage of total leukocytesOrdered By: Leonid Camp on 09-01-2024 Lymphocytes/100 WBC Auto (Unsp spec) 29.6 % 19-41 [facility] BUN/creatinine ratioOrdered By: Leonid Camp on 09-01-2024 Urea nitrogen/Creatinine [Mass ratio] 22.4 mg/mg High 10-20 [facility] Basic Metabolic Profile (BMP )on 07-09-2025 BUN/CRE 22.4 RATIO High 10-20 [facility] Comment on above: Performed By: #### L 500.2500, L100.0100 #### [facility] [address] [place], [address] Calcium [Mass/Vol] 9.3 mg/dL Normal 7.6-11.0 [facility] Comment on above: Performed By: #### L 500.2500, L100.0100 #### [facility] [address] [place], [address] Chloride [Moles/Vol] 104 mmol/L Normal 98-108 [facility] Comment on above: Performed By: #### L 500.2500, L100.0100 #### [facility] [address] [place], [address] CO2 [Moles/Vol] 22.0 mmol/L Normal 21.0-32.0 [facility] Comment on above: Performed By: #### L 500.2500, L100.0100 #### [facility] [address] [place], [address] Creatinine [Mass/Vol] 0.87 mg/dL Normal 0.70-1.20 [facility] Comment on above: Performed By: #### L 500.2500, L100.0100 #### [facility] [address] [place], [address] GAP 14 Normal 5-15 [facility] Comment on above: Performed By: #### L 500.2500, L100.0100 #### [facility] [address] [place], [address] GFR/1.73 sq M.predicted among non-blacks MDRD (S/P/Bld) [Vol rate/Area] 94 mL/min/{1.73_m2} Normal >60 [facility] Comment on above: Result Comment: mL/m in/1.73m2 CKD-EPI Creatinine Equation (2020) Performed By: #### L 500.2500, L100.0100 #### [facility] [address] [place], [address] Glucose [Mass/Vol] 92 mg/dL Normal 70-99 [facility] Comment on above: Performed By: #### L 500.2500, L100.0100 #### [facility] [address] [place], [address] Potassium [Moles/Vol] 4.1 mmol/L Normal 3.3-5.1 [facility] Comment on above: Result Comment: Hemo lysis present, Results??could be affected. ?? Performed By: #### L 500.2500, L100.0100 #### [facility] [address] [place], [address] Sodium [Moles/Vol] 139 mmol/L Normal 133-145 [facility] Comment on above: Performed By: #### L 500.2500, L100.0100 #### [facility] [address] [place], [address] Urea nitrogen [Mass/Vol] 20 mg/dL High 4-19 [facility] Comment on above: Performed By: #### L 500.2500, L100.0100 #### [facility] [address] [place], [address] Basophil percentageOrdered B y: Ellsworth Conrado on 09-01-2024 Basophils/100 WBC (Bld) 0.7 % 0-1 [facility] CBC W/Diff, Automatedon 0 Absolute Lymph 2.70 X10 3/uL Normal 0.83-4.51 [facility] Comment on above: Performed By: #### L 500.2500, L100.0100 #### [facility] [address] [place], [address] Absolute Neut 5.6 X10 3/uL Normal 2.0-7.7 [facility] Comment on above: Performed By: #### L 500.2500, L100.0100 #### [facility] [address] [place], [address] Basophils/100 WBC (Bld) 0.7 % Normal 0-1 [facility] Comment on above: Performed By: #### L 500.2500, L100.0100 #### [facility] [address] [place], [address] Eosinophils/100 WBC (Bld) 0.3 % Normal 0-5 [facility] Comment on above: Performed By: #### L 500.2500, L100.0100 #### [facility] [address] [place], [address] Erythrocyte distribution width (RBC) [Ratio] 13.4 % Normal 11.6-14.6 [facility] Comment on above: Performed By: #### L 500.2500, L100.0100 #### [facility] [address] [place], [address] Hematocrit (Bld) [Volume fraction] 42.4 % Normal 40-54 [facility] Comment on above: Performed By: #### L 500.2500, L100.0100 #### [facility] [address] [place], [address] Hemoglobin (Bld) [Mass/Vol] 14.5 g/dL Normal 13.0-16.5 [facility] Comment on above: Performed By: #### L 500.2500, L100.0100 #### [facility] [address] [place], [address] IG% 0.100 Normal 0.0-0.9 [facility] Comment on above: Result Comment: IG% - Immature Granulocytes (promyelocytes, myelocytes and metamyelocytes) > 1% indicates that a LEFT SHIFT is Present. Performed By: #### L 500.2500, L100.0100 #### [facility] [address] [place], [address] Lymphocytes/100 WBC (Bld) 29.6 % Normal 19-41 [facility] Comment on above: Performed By: #### L 500.2500, L100.0100 #### [facility] [address] [place], [address] MCH (RBC) [Entitic mass] 30.2 pg Normal 27.0-32.0 [facility] Comment on above: Performed By: #### L 500.2500, L100.0100 #### [facility] [address] [place], [address] MCHC (RBC) [Mass/Vol] 34.2 g/dL Normal 32-36 [facility] Comment on above: Performed By: #### L 500.2500, L100.0100 #### [facility] [address] [place], [address] MCV (RBC) [Entitic vol] 88.3 fL Normal 80-94 [facility] Comment on above: Performed By: #### L 500.2500, L100.0100 #### [facility] [address] [place], [address] Monocytes/100 WBC (Bld) 8.0 % Normal 0-10 [facility] Comment on above: Performed By: #### L 500.2500, L100.0100 #### [facility] [address] [place], [address] Neutrophils/100 WBC (Bld) 61.3 % Normal 47-70 [facility] Comment on above: Performed By: #### L 500.2500, L100.0100 #### [facility] [address] [place], [address] Nucleated RBC (Bld) [#/Vol] 0 10*3/uL Normal 0-5 [facility] Comment on above: Performed By: #### L 500.2500, L100.0100 #### [facility] [address] [place], [address] Platelet mean volume (Bld) [Entitic vol] 9.8 fL Normal 6.2-12.0 [facility] Comment on above: Performed By: #### L 500.2500, L100.0100 #### [facility] [address] [place], [address] Platelets (Bld) [#/Vol] 208 10*3/uL Normal 150-450 [facility] Comment on above: Performed By: #### L 500.2500, L100.0100 #### [facility] [address] [place], [address] RBC (Bld) [#/Vol] 4.80 10*6/uL Normal 4.6-6.2 [facility] Comment on above: Performed By: #### L 500.2500, L100.0100 #### [facility] [address] [place], [address] RDW SD 43.8 fl Normal 35.1-43.9 [facility] Comment on above: Performed By: #### L 500.2500, L100.0100 #### [facility] [address] [place], [address] WBC (Bld) [#/Vol] 9.1 10*3/uL Normal 4.4-11.0 [facility] Comment on above: Performed By: #### L 500.2500, L100.0100 #### [facility] [address] [place], [address] Carbon dioxide, total [Moles /volume] in Central venous bloodOrdered By: Leonid Camp on 09-01-2024 CO2 [Moles/Vol] 22.0 mmol/L 21.0-32.0 [facility] Cardiology Visit Reporton Cardiology Visit Report [facility] [address] [place] [address] OFFICE VISIT Date of Service: 09/01/24 MR#: [id number] Acct: [id number] Name: DARCY MONTERO Rep #: [id number] : 1955 Provider: Dr. Leonid Camp MD Age/Sex: 69/M [place] [facility] Status: Signed HPI HPI History of Present [...] Monitor Intake Visit Reasons: ABN CCTA (ESTUARDO) Post Closing Specialist Required: No Accompanied by: Self Is patient [...] you fallen in the past year?: No [facility] Medical History CAD (coronary artery disease) Abnormal [...] 1/6 GI (more content not included)... Normal [facility] Chloride assayOrdered By: Bandar Camp on 09-01-2024 Chloride [Moles/Vol] 104 mmol/L 98-108 [facility] Eosinophil percentageOrdered By: Leonid Camp on 09-01-2024 Eosinophils/100 WBC (Bld) 0.3 % 0-5 [facility] Erythrocyte distribution wid th ratioOrdered By: Leonid Camp on 09-01-2024 Erythrocyte distribution width (RBC) [Ratio] 13.4 % 11.6-14.6 [facility] Erythrocyte distribution wid th standard deviationOrdered By: Leonid Camp on 09-01-2024 Erythrocyte distribution width (RBC) [Ratio] 43.8 fl 35.1-43.9 [facility] Glomerular filtration rate ( GFR) estimation/1.73 sq m using serum, plasma, or whole bOrdered By: Leonid Camp on 09-01-2024 GFR/1.73 sq M.predicted among non-blacks MDRD (S/P/Bld) [Vol rate/Area] 94 mL/min/{1.73_m2} >60 [facility] Comment on above: mL/min/1.73m2 CKD-EP I Creatinine Equation (2020) Hematocrit Auto (Bld) [Volum e fraction]Ordered By: Leonid Camp on 09-01-2024 Hematocrit (Bld) [Volume fraction] 42.4 % 40-54 [facility] Hemoglobin measurementOrdere d By: Leonid Camp on 09-01-2024 Hemoglobin (Bld) [Mass/Vol] 14.5 g/dL 13.0-16.5 [facility] Immature granulocytes/100 WB C Auto (Bld)Ordered By: Leonid Stovallori on 09-01-2024 Immature granulocytes/100 WBC (Bld) 0.100 % 0.0-0.9 [facility] Comment on above: IG% - Immature Granu locytes (promyelocytes, myelocytes and metamyelocytes) > 1% indicates that a LEFT SHIFT is Present. MCV (mean corpuscular volume ) determinationOrdered By: Ellsworthgeorgia Camp on 09-01-2024 MCV (RBC) [Entitic vol] 88.3 fL 80-94 [facility] Mean corpuscular hemoglobin (MCH) determinationOrdered By: Ellsworth Conrado on 09-01-2024 MCH (RBC) [Entitic mass] 30.2 pg 27.0-32.0 [facility] Mean corpuscular hemoglobin concentration (MCHC) determinationOrdered By: Ellsworthgeorgia Camp on 09-01-2024 MCHC (RBC) [Mass/Vol] 34.2 g/dL 32-36 [facility] Mean platelet volume determi nationOrdered By: Ellsworthdenita Camp on 09-01-2024 Platelet mean volume (Bld) [Entitic vol] 9.8 fL 6.2-12.0 [facility] Monocyte percentageOrdered B y: Ellsworth Conrado on 09-01-2024 Monocytes/100 WBC (Bld) 8.0 % 0-10 [facility] Neutrophil percentageOrdered By: Ellsworth Conrado on 09-01-2024 Neutrophils/100 WBC (Bld) 61.3 % 47-70 [facility] Nucleated red blood cell per centageOrdered By: Ellsworthdenita Camp on 09-01-2024 Nucleated RBC/100 WBC (Bld) [Ratio] 0 % 0-5 [facility] Platelet countOrdered By: Cy ril Conrado on 09-01-2024 Platelets (Bld) [#/Vol] 208 10*3/uL 150-450 [facility] Potassium measurement (mass/ volume)Ordered By: Leonidgeorgia Camp on 09-01-2024 Potassium (Unsp spec) [Mass/Vol] 4.1 mmol/L 3.3-5.1 [facility] Comment on above: Hemolysis present, R esults could be affected. RBC Auto (Bld) [#/Vol]Ordere d By: Leonid Conrado on 09-01-2024 RBC (Bld) [#/Vol] 4.80 10*6/uL 4.6-6.2 [facility] Serum creatinine measurement (mass/volume)Ordered By: Leonid Camp on 09-01-2024 Creatinine [Mass/Vol] 0.87 mg/dL 0.70-1.20 [facility] Serum glucose measurement (m ass/volume)Ordered By: Leonid Camp on 09-01-2024 Glucose [Mass/Vol] 92 mg/dL 70-99 [facility] Serum or plasma calcium rogerio urement (mass/volume)Ordered By: Leonid Camp on 09-01-2024 Calcium [Mass/Vol] 9.3 mg/dL 7.6-11.0 [facility] Serum or plasma urea nitroge n measurement (mass/volume)Ordered By: Leonid Camp on 09-01-2024 Urea nitrogen [Mass/Vol] 20 mg/dL High 4-19 [facility] Sodium levelOrdered By: Kalyan Camp on 09-01-2024 Sodium [Moles/Vol] 139 mmol/L 133-145 [facility] White blood cell (WBC) count Ordered By: Leonid Conrado on 09-01-2024 WBC (Bld) [#/Vol] 9.1 10*3/uL 4.4-11.0 [facility] Coronary Angiography CTon Coronary Angiography [facility] [address] [place] [address] 08/09/24 1829 MR#: [id number] Acct: [id number] Name: DARCY MONTERO Rep #: [id number] : 1955 69 From: Leonid Camp MD [...] MD; Dr. Leonid Camp MD Signed Normal [facility] Limited Chest CT Cardiac Onl [facility] 07-27-[address] Cardiac Only [facility] Services [address] [place] [address] Cardiac Only MR#: [id number] Acct: [id number] Name: DARCY MONTERO Rep #: [id number] : 1955 M 69 From: Irineo Corrigan MD PCP: Dr. Salvador Marte MD Status: REG REF Study: Limited Chest CT Cardiac Only Date of Exam: Exam# [id number] Ordering Dr: Salvador Marte PROCEDURE: LIMITED CHEST CT CARDIAC ONLY REASON FOR EXAM: HYPERCHOLESTEROLEMIA TECHNIQUE: Contiguous axial scans of 2.5 mm slice thicknesses. One or more dose reduction techniques were used (e.g., automated exposure control, adjustment of mA and/or kv according to patient size, use of iterative reconstruction technique). Evaluation is limited to the non-coronary and non-cardiac findings. Only those areas demonstrated within the ozkla-ta-ewyd were evaluated. COMPARISON: No relevant prior. FINDINGS: [...] NON-CORONARY AND NON-CARDIAC ANATOMY ONLY. Reading Location: [place] [address] CC: Dr. Salvador Marte MD Vocational Rehabilitation Counselor: Signed Normal [facility] Calculated very low density lipoprotein (VLDL) cholesterol measurementOrdered By: Salvador Marte on 05-26-2024 Calculated very low density lipoprotein (VLDL) cholesterol measurement 15 mg/dL 5-40 [facility] VLDL Cholesterol 15 mg/dL 5-40 [facility] LDL calc ser/plasOrdered By: Salvador Marte on 05-26-2024 Cholesterol in LDL [Mass/Vol] 75 mg/dL [facility] Comment on above: Patnjpshtv=652-235 m g/dL & Higher Dxgt=495 mg/dL or greater LDL Cholesterol, Calculated 75 mg/dL [facility] Comment on above: Yycxniqokp=284-710 m g/dL & Higher Yucc=756 mg/dL or greater Lipid Profileon 05-26-2024 CHOL:HDL 2.74 Normal [facility] Comment on above: Order Comment: Order Date: 03/10/24 Order Info: [id number] - LIPID Performed By: #### L 500.4100 #### [facility] [address] [place], [place] [address], [address] Cholesterol [Mass/Vol] 142 mg/dL Normal <=200 [facility] Comment on above: Order Comment: Order Date: 03/10/24 Order Info: [id number] - LIPID Result Comment: Chol esterol level, Desirable <200 mg/dL Borderline high cholesterol 200-239 mg/dL High cholesterol >=240 mg/dL Recommendations of the NCEP Adult Treatment Panel for the following risk-cutoff thresholds for the [place] population. Performed By: #### L 500.4100 #### [facility] [address] [place], [address] Cholesterol in HDL [Mass/Vol] 52 mg/dL Normal [facility] Comment on above: Order Comment: Order Date: 03/10/24 Order Info: [id number] - LIPID Result Comment: Maribell onal Cholesterol Education Program (NCEP) guidelines: <40 mg/dL: Low HDL-cholesterol (major risk factor for CHD) >= 60 mg/dL: High HDL-cholesterol (negative risk factor for CHD) HDL-cholesterol is affected by a number of factors, e.g. smoking, exercise, hormones, sex and age. Performed By: #### L 500.4100 #### [facility] [address] [place], [address] Cholesterol in LDL [Mass/Vol] 75 mg/dL Normal [facility] Comment on above: Order Comment: Order Date: 03/10/24 Order Info: [id number] - LIPID Result Comment: Bord pejbof=704-104 mg/dL Higher Ewom=606 mg/dL or greater Performed By: #### L 500.4100 #### [facility] [address] [place], [address] Cholesterol in VLDL [Mass/Vol] 15 mg/dL Normal 5-40 [facility] Comment on above: Order Comment: Order Date: 03/10/24 Order Info: [id number] - LIPID Performed By: #### L 500.4100 #### [facility] [address] [place], [address] Triglyceride [Mass/Vol] 75 mg/dL Normal [facility] Comment on above: Order Comment: Order Date: 03/10/24 Order Info: [id number] - LIPID Result Comment: The drugs N-Acetylcysteine and Metamizole may falsely depress this assay. Normal range: <150 mg/dL Borderline High: 150-199 mg/dL High: 200-499 mg/dL Very High: >500 mg/dL Performed By: #### L 500.4100 #### [facility] [address] [place], [address] Screening total cholesterol/ high density lipoprotein (HDL) cholesterol ratioOrdered By: Salvador Marte on 05-26-2024 Cholesterol.total/Choles terol in HDL [Mass ratio] 2.74 {ratio} [facility] Serum or plasma cholesterol in HDL measurement (mass/volume)Ordered By: Salvador Marte on 05-26-2024 Cholesterol in HDL [Mass/Vol] 52 mg/dL >40 [facility] Comment on above: National Cholesterol Education Program (NCEP) guidelines:<40 mg/dL: Low HDL-cholesterol (major risk factor for CHD)>= 60 mg/dL: High HDL-cholesterol (negative risk factor for CHD)HDL-cholesterol is affected by a number of factors, e.g. smoking, exercise, hormones, sex and age. Serum or plasma cholesterol measurement (mass/volume)Ordered By: Salvador Marte on 05-26-2024 Cholesterol [Mass/Vol] 142 mg/dL <201 [facility] Comment on above: Cholesterol level, D esirable <200 mg/dLBorderline high cholesterol 200-239 mg/dLHigh cholesterol >=240 mg/dLRecommendations of the NCEP Adult Treatment Panel for the following risk-cutoff thresholds for the [place] population. Triglycerides measurementOrd ered By: Salvador Marte on 05-26-2024 Triglyceride [Mass/Vol] 75 mg/dL <199 [facility] Comment on above: The drugs N-Acetylcy steine and Metamizole may falsely depress this assay. Normal range: <150 mg/dLBorderline High: 150-199 mg/dLHigh: 200-499 mg/dLVery High: >500 mg/dL Venous Duplex US, Unilateral on 05-07-2024 Venous Duplex US, Unilateral [facility] [address] [place] [address] Venous Duplex US, Unilateral 05/07/24 0803 MR#: [id number] Acct: [id number] Name: DARCY MONTERO Rep #: [id number] : 1955 69 From: Mark Tovar MD [...] MD Date Dictated: 05/07/24802 Date Transcribed: 05/07/241932 Vocational Rehabilitation Counselor: Signed Normal [facility] Venous duplex ultrasound rep ortOrdered By: Mark Tovar on 05-07-[address] [facility] [address] [place] [address] Venous Duplex US, Unilateral 05/07/24802 MR#: [id number] Acct: [id number] Name: DARCY MONTERO Rep #:[id number] : [...] ~ Date Dictated: 05/07/24802 Date Transcribed: 05/07/241932 Vocational Rehabilitation Counselor: Signed [facility] Other Phone: Albumin to globulin ratioOrd ered By: Salvador Marte on 03-05-2024 Albumin/Globulin [Mass ratio] 1.0 {ratio} 0.9-2.4 [facility] Bilirubin, totalOrdered By: Salvador Marte on 03-05-2024 Bilirubin [Mass/Vol] 0.70 mg/dL 0.20-1.00 [facility] Comment on above: For patients on eltr ombopag therapy, use of Dimension [place] TBIL is not recommended. Blood urea nitrogen (BUN)/cr eatinine ratioOrdered By: Salvador Marte on 03-05-2024 Urea nitrogen/Creatinine [Mass ratio] 19.2 mg/mg 12-13 [facility] Carbon dioxide measurementOr dered By: Salvador Marte on 03-05-2024 CO2 [Moles/Vol] 26.0 mmol/L 21.0-32.0 [facility] Chloride measurementOrdered By: Salvador Marte on 03-05-2024 Chloride [Moles/Vol] 106 mmol/L 98-107 [facility] Comprehensive Metabolic Prof ilon 03-05-2024 Albumin [Mass/Vol] 3.5 g/dL Normal 3.2-5.0 [facility] Comment on above: Order Comment: Order Date: 12/16/23 Order Info: [id number] - CMP Order Info: [id number] - LIPID Order Info: [id number] - PSA Performed By: #### L 501.9910, L500.4050, L500.4100 #### [facility] [address] [place], [address] Albumin/Globulin [Mass ratio] 1.0 {ratio} Normal 0.9-2.4 [facility] Comment on above: Order Comment: Order Date: 12/16/23 Order Info: [id number] - CMP Order Info: [id number] - LIPID Order Info: [id number] - PSA Performed By: #### L 501.9910, L500.4050, L500.4100 #### [facility] [address] [place], [address] ALK P 71 U/L Normal 45-117 [facility] Comment on above: Order Comment: Order Date: 12/16/23 Order Info: [id number] - CMP Order Info: [id number] - LIPID Order Info: [id number] - PSA Performed By: #### L 501.9910, L500.4050, L500.4100 #### [facility] [address] [place], [address] ALT [Catalytic activity/Vol] 30 U/L Normal 16-61 [facility] Comment on above: Order Comment: Order Date: 12/16/23 Order Info: [id number] - CMP Order Info: [id number] - LIPID Order Info: [id number] - PSA Performed By: #### L 501.9910, L500.4050, L500.4100 #### [facility] [address] [place], [address] AST [Catalytic activity/Vol] 14 U/L Low 15-37 [facility] Comment on above: Order Comment: Order Date: 12/16/23 Order Info: [id number] - CMP Order Info: - LIPID Order Info: [id number] - PSA Performed By: #### L 501.9910, L500.4050, L500.4100 #### [facility] [address] [place], [address] Bilirubin [Mass/Vol] 0.70 mg/dL Normal 0.20-1.00 [facility] Comment on above: Order Comment: Order Date: 12/16/23 Order Info: [id number] - CMP Order Info: - LIPID Order Info: [id number] - PSA Result Comment: For patients on eltrombopag therapy, use of Dimension [place] TBIL is not recommended. Performed By: #### L 501.9910, L500.4050, L500.4100 #### [facility] [address] [place], [address] BUN/CRE 19.2 RATIO Normal 10-20 [facility] Comment on above: Order Comment: Order Date: 12/16/23 Order Info: [id number] - CMP Order Info: - LIPID Order Info: [id number] - PSA Performed By: #### L 501.9910, L500.4050, L500.4100 #### [facility] [address] [place], [address] CA,Total 8.8 mg/dL Normal 8.5-10.1 [facility] Comment on above: Order Comment: Order Date: 12/16/23 Order Info: 07 - CMP Order Info: - LIPID Order Info: [id number] - PSA Performed By: #### L 501.9910, L500.4050, L500.4100 #### [facility] [address] [place], [address] Chloride [Moles/Vol] 106 mmol/L Normal 98-107 [facility] Comment on above: Order Comment: Order Date: 12/16/23 Order Info: [id number] - CMP Order Info: [id number] - LIPID Order Info: 1 - PSA Performed By: #### L 501.9910, L500.4050, L500.4100 #### [facility] Laboratory [address] [place], [address] CO2 [Moles/Vol] 26.0 mmol/L Normal 21.0-32.0 [facility] Comment on above: Order Comment: Order Date: 12/16/23 Order Info: [id number] - CMP Order Info: - LIPID Order Info: [id number] - PSA Performed By: #### L 501.9910, L500.4050, L500.4100 #### [facility] [address] [place], [address] Creatinine [Mass/Vol] 0.89 mg/dL Normal 0.70-1.30 [facility] Comment on above: Order Comment: Order Date: 12/16/23 Order Info: [id number] - CMP Order Info: [id number] - LIPID Order Info: [id number] - PSA Result Comment: The validity of the calculated GFR GFRAA in patients over 70 years has not been determined. Clinical correlation is essential. Performed By: #### L 501.9910, L500.4050, L500.4100 #### [facility] [address] [place], [address] EST GFR - AA 110 mL/min Normal >60 [facility] Comment on above: Order Comment: Order Date: 12/16/23 Order Info: [id number] - CMP Order Info: [id number] - LIPID Order Info: [id number] - PSA Result Comment: Afri can Turkish GFR Calc Performed By: #### L 501.9910, L500.4050, L500.4100 #### [facility] [address] [place], [address] GAP 6 Normal 5-15 [facility] Comment on above: Order Comment: Order Date: 12/16/23 Order Info: [id number] - CMP Order Info: - LIPID Order Info: [id number] - PSA Performed By: #### L 501.9910, L500.4050, L500.4100 #### [facility] [address] [place], [address] GFR/1.73 sq M.predicted among non-blacks MDRD (S/P/Bld) [Vol rate/Area] 91 mL/min/{1.73_m2} Normal >60 [facility] Comment on above: Order Comment: Order Date: 12/16/23 Order Info: [id number] - CMP Order Info: - LIPID Order Info: [id number] - PSA Result Comment: Non- GFR Calc Performed By: #### L 501.9910, L500.4050, L500.4100 #### [facility] [address] [place], [address] Globulin (S) [Mass/Vol] 3.4 g/dL Normal 2.2-4.2 [facility] Comment on above: Order Comment: Order Date: 12/16/23 Order Info: [id number] - CMP Order Info: [id number] - LIPID Order Info: [id number] - PSA Performed By: #### L 501.9910, L500.4050, L500.4100 #### [facility] [address] [place], [address] Glucose [Mass/Vol] 99 mg/dL Normal 74-106 [facility] Comment on above: Order Comment: Order Date: 12/16/23 Order Info: [id number] - CMP Order Info: [id number] - LIPID Order Info: [id number] - PSA Performed By: #### L 501.9910, L500.4050, L500.4100 #### [facility] [address] [place], [address] Potassium [Moles/Vol] 4.0 mmol/L Normal 3.5-5.1 [facility] Comment on above: Order Comment: Order Date: 12/16/23 Order Info: [id number] - CMP Order Info: [id number] - LIPID Order Info: [id number] - PSA Performed By: #### L 501.9910, L500.4050, L500.4100 #### [facility] [address] [place], [address] Sodium [Moles/Vol] 138 mmol/L Normal 136-145 [facility] Comment on above: Order Comment: Order Date: 12/16/23 Order Info: [id number] - CMP Order Info: [id number] - LIPID Order Info: [id number] - PSA Performed By: #### L 501.9910, L500.4050, L500.4100 #### [facility] [address] [place], [address] T PROT 6.9 g/dL Normal 6.4-8.2 [facility] Comment on above: Order Comment: Order Date: 12/16/23 Order Info: [id number] - CMP Order Info: [id number] - LIPID Order Info: [id number] - PSA Performed By: #### L 501.9910, L500.4050, L500.4100 #### [facility] [address] [place], [address] Urea nitrogen [Mass/Vol] 17 mg/dL Normal 7-18 [facility] Comment on above: Order Comment: Order Date: 12/16/23 Order Info: [id number] - CMP Order Info: [id number] - LIPID Order Info: [id number] - PSA Performed By: #### L 501.9910, L500.4050, L500.4100 #### [facility] [address] [place], [place], [id number] Estimated glomerular filtrat ion rate (GFR) AmericanOrdered By: Salvador Marte on 03-05-2024 Estimated GFR (MDRD) Amer 110 mL/min >60 [facility] Comment on above: GFR Calc Glomerular filtration rate ( GFR) estimationOrdered By: Salvador Marte on 03-05-2024 Estimated GFR (MDRD) Non-Af Amer 91 mL/min >60 [facility] Comment on above: Non- GFR Calc Glucose measurementOrdered B y: Salvador Marte on 03-05-2024 Glucose [Mass/Vol] 99 mg/dL 74-106 [facility] High density lipoprotein (HD L) measurementOrdered By: Salvador Marte on 03-05-2024 Cholesterol in HDL [Mass/Vol] 49 mg/dL >40 [facility] Comment on above: The drugs N-Acetylcy steine and Metamizole may falsely depress this assay. Reference Range HDL <40 mg/dL Low HDL Cholesterol HDL >or= 60 mg/dL High HDL Cholesterol Laboratory - Chemistry and C hemistry - challengeOrdered By: Salvador Marte on 03-05-2024 AST [Catalytic activity/Vol] 14 U/L Low 15-37 [facility] Lipid Profileon 03-05-2024 Cholesterol [Mass/Vol] 209 mg/dL High 200 [facility] Comment on above: Order Comment: Order Date: 12/16/23 Order Info: [id number] - CMP Order Info: [id number] - LIPID Order Info: [id number] - PSA Result Comment: <200 mg/dL Desirable 200-240 mg/dL Borderline >240 mg/dL High Risk Performed By: #### L 501.9910, L500.4050, L500.4100 #### [facility] [address] [place], [place], [address] Cholesterol in HDL [Mass/Vol] 49 mg/dL Normal [facility] Comment on above: Order Comment: Order Date: 12/16/23 Order Info: [id number] - CMP Order Info: - LIPID Order Info: [id number] - PSA Result Comment: The drugs N-Acetylcysteine and Metamizole may falsely depress this assay. Reference Range HDL <40 mg/dL Low HDL Cholesterol HDL >or= 60 mg/dL High HDL Cholesterol Performed By: #### L 501.9910, L500.4050, L500.4100 #### [facility] [address] [place], [address] Cholesterol in LDL [Mass/Vol] 136 mg/dL High 0-130 [facility] Comment on above: Order Comment: Order Date: 12/16/23 Order Info: [id number] - CMP Order Info: - LIPID Order Info: [id number] - PSA Performed By: #### L 501.9910, L500.4050, L500.4100 #### [facility] [address] [place], [place], [address] Cholesterol in VLDL [Mass/Vol] 24 mg/dL Normal 5-40 [facility] Comment on above: Order Comment: Order Date: 12/16/23 Order Info: [id number] - CMP Order Info: - LIPID Order Info: [id number] - PSA Performed By: #### L 501.9910, L500.4050, L500.4100 #### [facility] [address] [place], [address] Triglyceride [Mass/Vol] 121 mg/dL Normal [facility] Comment on above: Order Comment: Order Date: [...] By: #### L 501.9910, L500.4050, L500.4100 #### [facility] [address] [place], [place], [address] Low density lipoprotein (LDL ) cholesterol measurementOrdered By: Salvador Marte on 03-05-2024 Cholesterol in LDL [Mass/Vol] 136 mg/dL High 0-130 [facility] PSA,Total - Annual Screenon 03-05-2024 PSA,TOT SCREEN 0.70 ng/mL Normal 0.00-4.00 [facility] Comment on above: Order Comment: Order Date: 12/16/23 Order Info: [id number] - CMP Order Info: [id number] - LIPID Order Info: [id number] - PSA Result Comment: This test was performed using the TPSA assay method for the [employer] chemistry system. Values obtained with different assay methods cannot be used interchangably. When changing PSA assays in the course of monitoring a patient, additional sequential testing should be carried out to confirm baseline values. Performed By: #### L 501.9910, L500.4050, L500.4100 #### [facility] [address] [place], [address] Potassium measurementOrdered By: Salvador Marte on 03-05-2024 Potassium [Moles/Vol] 4.0 mmol/L 3.5-5.1 [facility] Screening prostate specific antigen (PSA) measurementOrdered By: Salvador Marte on 03-05-2024 Prostate Specific Antigen Screen 0.70 ng/mL 0.00-4.00 [facility] Comment on above: This test was perfor med using the TPSA assay method for [employer] chemistry system. Values obtained with differentassay methods cannot be used interchangably.When changing PSA assays in the course of monitoring apatient, additional sequential testing should be carriedout to confirm baseline values. Serum anion gap measurementO rdered By: Salvador Marte on 03-05-2024 Anion gap [Moles/Vol] 6 mmol/L 5-15 [facility] Serum globulin measurementOr dered By: Salvador Marte on 03-05-2024 Globulin (S) [Mass/Vol] 3.4 g/dL 2.2-4.2 [facility] Serum or plasma alanine calix otransferase (ALT) measurementOrdered By: Salvador Marte on 03-05-2024 ALT [Catalytic activity/Vol] 30 U/L 16-61 [facility] Serum or plasma albumin rogerio urement (mass/volume)Ordered By: Salvador Marte on 03-05-2024 Albumin [Mass/Vol] 3.5 g/dL 3.2-5.0 [facility] Serum or plasma alkaline jamin sphatase measurementOrdered By: Salvador Marte on 03-05-2024 ALP [Catalytic activity/Vol] 71 U/L 45-117 [facility] Serum or plasma calcium rogerio urement (mass/volume)Ordered By: Salvador Matre on 03-05-2024 Calcium [Mass/Vol] 8.8 mg/dL 8.5-10.1 [facility] Serum or plasma cholesterol measurement (mass/volume)Ordered By: Salvador Marte on 03-05-2024 Cholesterol [Mass/Vol] 209 mg/dL High <200 [facility] Comment on above: <200 mg/dL Desirable 200-240 mg/dL Borderline >240 mg/dL High Risk Serum or plasma creatinine m easurement (mass/volume)Ordered By: Salvador Marte on 03-05-2024 Creatinine [Mass/Vol] 0.89 mg/dL 0.70-1.30 [facility] Comment on above: The validity of the calculated GFR & GFRAA in patients over 70 years has not been determined. Clinical correlation is essential. Serum or plasma urea nitroge n measurement (mass/volume)Ordered By: Salvador Marte on 03-05-2024 Urea nitrogen [Mass/Vol] 17 mg/dL 7-18 [facility] Sodium levelOrdered By: Johnny Marte on 03-05-2024 Sodium [Moles/Vol] 138 mmol/L 136-145 [facility] Total proteinOrdered By: Luci Marte on 03-05-2024 Protein [Mass/Vol] 6.9 g/dL 6.4-8.2 [facility] Triglycerides measurementOrd ered By: Salvador Marte on 03-05-2024 Triglyceride [Mass/Vol] 121 mg/dL <199 [facility] Comment on above: The drugs N-Acetylcy steine and Metamizole may falsely depress this assay.Serum Triglycerides Reference Interval Normal <150 mg/dL Borderline high 150 - 199 mg/dL High 200 - 499 mg/dL Very High > or = 500 mg/dL Very low density lipoprotein (VLDL) cholesterol measurementOrdered By: Salvador Marte on 03-05-2024 VLDL Cholesterol 24 mg/dL 5-40 [facility] Basophil percentageOrdered B y: Jose Luis Marte on 01-17-2023 Bilirubin [Mass/Vol] 0.40 mg/dL 0.20-1.00 [facility] Comment on above: For patients on eltr ombopag therapy, use of Dimension [place] TBIL is not recommended. Chloride [Moles/Vol] 107 mmol/L 98-107 [facility] Cholesterol [Mass/Vol] 226 mg/dL <200 [facility] Comment on above: <200 mg/dL Desirable 200-240 mg/dL Borderline >240 mg/dL High Risk Glucose [Mass/Vol] 117 mg/dL 74-106 [facility] Comment on above: Fasting Glucose resu lt from 100 to 125 mg/dL suggests IMPAIRED HOMEOSTASIS per A.D.A. criteria. Potassium [Moles/Vol] 4.7 mmol/L 3.5-5.1 [facility] Comment on above: Slight Hemolysis, Re sult may be falsely increased. Protein [Mass/Vol] 7.0 g/dL 6.4-8.2 [facility] Sodium [Moles/Vol] 142 mmol/L 136-145 [facility] Triglyceride [Mass/Vol] 494 mg/dL <199 [facility] Comment on above: The drugs N-Acetylcy steine [...] 01-17-2023 ALP [Catalytic activity/Vol] 63 U/L 45-117 [facility] ALT [Catalytic activity/Vol] 31 U/L 16-61 [facility] CO2 [Moles/Vol] 28.0 mmol/L 21.0-32.0 [facility] Globulin (S) [Mass/Vol] 3.5 g/dL 2.2-4.2 [facility] Urea nitrogen/Creatinine [Mass ratio] 18.9 mg/mg 10-20 [facility] No Panel InformationOrdered By: Jose Luis Marte on 01-17-2023 Estimated GFR (MDRD) Amer 108 mL/min >60 [facility] Comment on above: GFR Calc Estimated GFR (MDRD) Non-Af Amer 89 mL/min >60 [facility] Comment on above: Non- GFR Calc Prostate Specific Antigen Screen 0.97 ng/mL 0.00-4.00 [facility] Comment on above: This test was perfor med using the TPSA assay method for [employer] chemistry system. Values obtained with differentassay methods cannot be used interchangably.When changing PSA assays in the course of monitoring apatient, additional sequential testing should be carriedout to confirm baseline values. Serum or plasma albumin rogerio urement (mass/volume)Ordered By: Jose Luis Marte on 01-17-2023 Albumin [Mass/Vol] 3.5 g/dL 3.2-5.0 [facility] Serum or plasma albumin/glob ulin mass ratioOrdered By: Jose Luis Marte on 01-17-2023 Albumin/Globulin [Mass ratio] 1.0 {ratio} 0.9-2.4 [facility] Serum or plasma calcium rogerio urement (mass/volume)Ordered By: Jose Luis Marte on 01-17-2023 Calcium [Mass/Vol] 8.6 mg/dL 8.5-10.1 [facility] Serum or plasma cholesterol in HDL measurement (mass/volume)Ordered By: Jose Luis Marte on 01-17-2023 Cholesterol in HDL [Mass/Vol] 41 mg/dL >40 [facility] Comment on above: The drugs N-Acetylcy steine and Metamizole may falsely depress this assay. Reference Range HDL <40 mg/dL Low HDL Cholesterol HDL >or= 60 mg/dL High HDL Cholesterol Serum or plasma cholesterol in VLDL measurement (mass/volume)Ordered By: Jose Luis Marte on 01-17-2023 Cholesterol in VLDL [Mass/Vol] [facility] Comment on above: Test not performed Serum or plasma creatinine m easurement (mass/volume)Ordered By: Jose Luis Marte on 01-17-2023 Creatinine [Mass/Vol] 0.90 mg/dL 0.70-1.30 [facility] Comment on above: The validity of the calculated GFR & GFRAA in patients over 70 years has not been determined. Clinical correlation is essential. Serum or plasma low density lipoprotein (LDL) cholesterol measurement (mass/volume)Ordered By: Jose Luis Marte on 01-17-2023 Cholesterol in LDL [Mass/Vol] [facility] Comment on above: Test not performed Serum or plasma urea nitroge n measurement (mass/volume)Ordered By: Jose Luis Marte on 01-17-2023 Urea nitrogen [Mass/Vol] 17 mg/dL 7-18 [facility] Thin prep Papanicolaou smear with manual screeningOrdered By: Jose Luis Marte on 01-17-2023 Thin prep Papanicolaou smear with manual screening 18 U/L 15- [facility] Comment on above: Slight Hemolysis, Re sult may be falsely increased. Thin prep Papanicolaou smear with manual screening 7 5-15 [facility] Microbiology: Culture, R/O S trep Aon 07-30-2016 GE use only - for [employer] import when terms are not otherwise specified . Invalid Interpretation Code [facility] Work Phone: Office Visit: UC: Headache, cough, sore throaton 07-28-2016 Documentation of current medications (procedure) Done Invalid Interpretation Code [facility] Work Phone: [phone] Tobacco smoking status NHIS Never Invalid Interpretation Code [facility] Work Phone: [phone] Tobacco use CPHS Never smoker Invalid Interpretation Code [facility] Work Phone: [phone] Vital Signs Date Time Vital Sign Value Performing Clinician Elliot greenwood 09-01-2024 15:57-0400 Body height 172.[address] Salvador Marte MD Work Phone: [facility] 09-01-2024 15:57-0400 Body mass index (BMI) [Ratio] 34.3 kg/m2 Dr. Salvador Marte MD Work Phone: [facility] 09-01-2024 15:57-0400 Body weight 102.[address] Salvador Marte MD Work Phone: [facility] 09-01-2024 15:57-0400 Diastolic blood pressure 78 mm[Hg] Dr. Salvador Marte MD Work Phone: [facility] 09-01-2024 15:57-0400 Heart rate 80 /min Dr. Salvador Marte MD Work Phone: [facility] 09-01-2024 15:57-0400 Respiratory rate 16 /min Dr. Salvador Marte MD Work Phone: [facility] 09-01-2024 15:57-0400 Systolic blood pressure 146 mm[Hg] Dr. Salvador Marte MD Work Phone: [facility] 12-22-2022 08:57-0400 Heart rate 101 /min Dr. Jose Luis Marte Work Phone: [facility] 12-22-2022 08:24-0400 Body temperature 100.4 [degF] Dr. Jose Luis Marte Work Phone: [facility] 12-22-2022 08:24-0400 Body weight 108.[address] Jose Luis Marte Work Phone: [facility] 12-22-2022 08:24-0400 Diastolic blood pressure 105 mm[Hg] Dr. Jose Luis Marte Work Phone: [facility] 12-22-2022 08:24-0400 Respiratory rate 16 /min Dr. Jose Luis Marte Work Phone: [facility] 12-22-2022 08:24-0400 SaO2% (BldA) [Mass fraction] 96 % Dr. Jose Luis Marte Work Phone: [facility] 12-22-2022 08:24-0400 Systolic blood pressure 155 mm[Hg] Dr. Jose Luis Marte Work Phone: [facility] 07-28-2016 10:56-0400 BMI (Body Mass Index) 38.39 kg/m2 Ashutosh Lundberg [employer]ER[employer] [facility] Work Phone: 07-28-2016 10:56-0400 Body Temperature 98.2 [degF] Ashutosh Lundberg [employer] [facility] Work Phone: 07-28-2016 10:56-0400 BP Diastolic 114 mm[Hg] Ashtuosh Lundberg [employer] [facility] Work Phone: 07-28-2016 10:56-0400 BP Systolic 184 mm[Hg] Ashutosh Lundberg [employer] Work Phone: 07-28-2016 10:56-0400 Height 175.26 cm Ashutosh Lundberg [employer] Work Phone: 07-28-2016 10:56-0400 Pulse (Heart Rate) 80 /min Ashutosh Lundberg [employer] Work Phone: 07-28-2016 10:56-0400 Pulse Oximetry 99 % Ashutosh Lundberg [employer] [facility] Work Phone: 07-28-2016 10:56-0400 Respiratory Rate 16 /min Ashutosh Lundberg [employer] Work Phone: 07-28-2016 10:56-0400 Weight 117.94 kg Ashutosh Lundberg [employer] [facility] Work Phone: Encounters Encounter Date Encounter Type Care Provider Facility Start: 09-08-2024 ambulatory Leonid Camp Facility:[facility] Start: 09-01-2024 End: 09-01-[address] Leonid Camp MD -Laboratory Work Phone: Start: 09-01-2024 End: 09-01-2024 ambulatory Leonid Camp Facility:[facility] Start: 09-01-2024 End: 09-01-[address] Leonid Camp MD -[facility] Work Phone: Start: 09-01-2024 End: 09-01-[address] Salvador Marte MD Work Phone: -[facility] Start: 07-27-2024 Non-patient / Non-visit Dr. Leonid Camp MD -[facility] Work Phone: Start: 07-27-[address] Mehran Marte MD -[facility] Work Phone: Start: 07-27-2024 ambulatory Leonid Camp Facility:[facility] Start: 05-26-2024 End: 05-26-[address] Salvador Marte MD Work Phone: [facility] Work Phone: Start: 05-26-2024 End: 05-26-[address] [facility] Start: 05-26-2024 End: 05-26-2024 ambulatory Salvador Marte Facility:[facility] Start: 05-07-2024 End: 05-07-[address] Salvador Marte MD Work Phone: [facility] Work Phone: Start: 05-07-2024 End: 05-07-[address] Salvador Marte MD -[facility] Work Phone: Start: 05-07-2024 End: 05-07-2024 ambulatory Salvador Marte Facility:[facility] Start: 03-05-2024 End: 03-05-[address] [facility] Start: 03-05-2024 End: 03-05-2024 ambulatory Salvador Marte Facility:[facility] Start: 01-17-2023 End: 11-24-[address] Jose Luis Marte Work Phone: [facility] Work Phone: Start: 01-17-2023 End: 01-17-[address] Jose Luis Marte Work Phone: [facility] Start: 12-22-2022 End: 12-22-[address] Jose Luis Marte Work Phone: [facility] Work Phone: Procedures Date Procedure Procedure Detail Performing Clinician Start: 07-27-2024 CT angiography of coronary arteries Dr. Salvador Marte MD Work Phone: Start: 07-28-2016 End: 07-28-2016 Rapid strep test Ashutosh Lundberg [employer] P[employer]ER-C Plan of Treatment Date Care Activity Detail Author Start: 09-01-2024 Evaluation of diagnostic study results [facility] Start: 07-28-2016 End: 07-28-2016 Appointment Appointment [facility] Work Phone: Start: 07-28-2016 End: 07-28-2016 Streptococcus.beta-hemolyti c [Presence] in Throat by Organism specific culture *Culture, R/O Strep A Swab [facility] Work Phone: Basic metabolic 2008 panel with ionized calcium - Serum or Plasma [facility] Catheterization of l eft heart [facility] CBC W Auto Different ial panel - Blood [facility] Payers Date Payer Category Payer Unknown 2024 Medicare [id number] 2024 Self-pay [id number] Unknown [id number] Unknown [id number] 2.16.8 [id number] Unknown [id number] 2.16.8 [id number] Unknown [id number] 2.16.8 [id number] Unknown [id number] 2.16.8 [id number] Unknown [id number] 2.16.8 [id number] Unknown [id number] 2.16.8 [id number] Unknown [id number] 2.16.8 [id number] Unknown [id number] 2.16.8 [id number] Social History Date Type Detail Facility Tobacco smoking stat [facility] Unknown if ever smoked [facility] Work Phone: Start: 1955 Sex Assigned At Male [facility] Tobacco smoking stat [facility] Unknown if ever smoked [facility] Work Phone: Start: 05-17-2024 End: 06-01-2024 Sex Male (finding) [facility] Start: 08-25-2024 [facility] Evaluation note 09-01-2024 Note Date & Type Note Facility 09-01-2024 Evaluation note Diagnosis Onset Date Resolution Abnormal cardiac CT angiography acute September 01, 2024 2 :22pm Essential (primary) hypertension acute September 01, 2024 2 :22pm [facility] Work Phone: Progress note 09-01-2024 Note Date & Type Note Facility 09-01-2024 Progress note [facility] Progress note 09-01-2024 Note Date & Type Note Facility 09-01-2024 Progress note Note Date/Time September 01, 2024 4:20pm [facility] [address] [place] [address] [address] [place] [address] OFFICE VISIT Date of Service: 09/01/24 MR#: [id number] Acct: [id number] Name: DARCY MONTERO Rep #: [id number] : 1955 Provider: Dr. Kalyan Camp MD Age/Sex: 69/M [place] [facility] Status: Signed HPI HPI History of Present [...] Monitor Intake Visit Reasons: ABN CCTA (ESTUARDO) Post Closing Specialist Required: No Accompanied by: Self Is patient [...] hypertension, I25.10 - 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, R93.1 - [...] applicable) CC: Dr. Salvador Marte MD ~ [facility] Work Phone: Evaluation note Note Date & Type Note Facility Evaluation note No assessment information availa ble [facility] Work Phone: Evaluation note Note Date & Type Note Facility Evaluation note Diagnosis Onset Date Rash acute [facility] Work Phone: Reason for referral (narrative) Note Date & Type Note Facility Reason for referral (narrative) No reason for referral information available [facility] Work Phone: Chief Complaint and Reason for [...] Status: Inactive Member Role Status Dates Dr. Joes Luis Marte MD Primary Care Provider, Refe ing Provider Active Samir Fountain LOGGING SUPERINTENDENT, LOGGING SUPERINTENDENT-C Attending Provider Active Team Status: Inactive Member [...] Active Start: May 07, 2024 Dr. Salvador Marte MD [...] section and content) DATE CREATED AUTHOR 09/05/2024 [facility] FOR RECORDS PERTAINING TO PATIENTS WHO ARE [...] BE BASED ON THE PRIMARY CLINICAL RECORDS. [facility] [employer] [facility]. provides no warranty or guarantee of the accuracy or completeness of information in this document.
[2024-09-09 02:04] VITALS: BP 136/78; PULSE 67; RESP 16; TEMP 37; O2SAT 98
[2024-09-09 03:00] VITALS: PULSE 58
[2024-09-09 05:03] VITALS: BP 138/73; PULSE 61; RESP 16; TEMP 35.8; O2SAT 99
[2024-09-09 06:04] LABS: Hematocrit 38.9 % (40-54); Hemoglobin 13.6 g/dL (13.0-16.5); Mean Corp Hgb Conc 35.0 g/dL (32-36); Mean Corpuscular Volume 89.2 fL (80-94); Mean Platelet Vol. 9.9 fl (6.2-12.0); Platelet Count 192 K/mm3 (150-450); RBC Distribution Width CV 13.6 % (11.6-14.6); RBC Distribution Width SD 44.9 fl (35.1-43.9); Red Blood Count 4.36 M/mm3 (4.6-6.2); White Blood Count 7.5 K/mm3 (4.4-11.0)
[2024-09-09 06:28] LABS: AST(SGOT) 21 U/L (<=37); Alanine Aminotransfer ALT/SGPT 25 U/L (<=46); Albumin, Serum 4.0 g/dL (3.4-4.8); Alkaline Phosphatase 61 U/L (40-129); Anion Gap 9 (5-15); BUN 16 mg/dL (4-19); BUN/Creat Ratio 16.9 RATIO (10-20); Calcium,Total 9.0 mg/dL (7.6-11.0); Carbon Dioxide 25.8 mmol/L (21.0-32.0); Chloride 105 mmol/L (98-108); Estimated Creatinine Clearance 85.46 ml/min (50-250); Globulin 2.1 g/dL (2.2-4.2); Glucose 92 mg/dL (70-99); Potassium 4.7 mmol/L (3.3-5.1)
--- NOTE | 2024-09-09 07:16 | PCM.PN.CARD ---
Subjective Subjective Patient seen and evaluated. Doing well. No complaints at this time. Objective Data Vital Signs: Vital Signs Temp Pulse Resp BP Pulse Ox O2 Del Method 96.5 F L 61 16 138/73 H 99 Room Air 09/09/24 05:03 09/09/24 05:03 09/09/24 05:03 09/09/24 05:03 09/09/24 05:03 09/09/24 05:03 Oxygen Delivery Method Room Air Weight: 226 lb Body Mass Index (BMI) 34.3 Intake & Output: Intake and Output for Last 24 Hours 09/07/24 09/08/24 09/09/24 23:59 23:59 23:59 Intake Total 1000 / 1000 Balance 1000 / 1000 Lab / Micro Data 09/09/24 05:22 09/09/24 05:22 Labs: Laboratory Results - last 24 hr 09/08/24 07:38: Activated Clotting Time 256 H 09/08/24 08:05: Activated Clotting Time 268 H 09/09/24 05:22: WBC 7.5, RBC 4.36 L, Hgb 13.6, Hct 38.9 L, MCV 89.2, MCH 31.2, MCHC 35.0, RDW Std Deviation 44.9 H, RDW Coeff of Anuj 13.6, Plt Count 192, MPV 9.9, Sodium 140, Potassium 4.7, Chloride 105, Carbon Dioxide 25.8, Anion Gap 9, BUN 16, Creatinine 0.96, Estim Creat Clear Calc 85.46, Est GFR (MDRD) Non-Af 86, BUN/Creatinine Ratio 16.9, Glucose 92, Calcium 9.0, Total Bilirubin 0.69, AST 21, ALT 25, Alkaline Phosphatase 61, Total Protein 6.0, Albumin 4.0, Globulin 2.1 L, Albumin/Globulin Ratio 1.9 Cardiology Labs/Tests 09/09/24 05:22: WBC 7.5, RBC 4.36 L, Hgb 13.6, Hct 38.9 L, MCV 89.2, MCH 31.2, MCHC 35.0, Plt Count 192, MPV 9.9, Sodium 140, Potassium 4.7, Chloride 105, Carbon Dioxide 25.8, Anion Gap 9, BUN 16, Creatinine 0.96, Est GFR (MDRD) Non-Af 86, BUN/Creatinine Ratio 16.9, Glucose 92, Calcium 9.0, Total Bilirubin 0.69 Rhythm: EKG: ECHO: Stress Test: Cardiac Cath: PCI: CT Surgery: Holter monitor: EPS: PPM: CXR: Chest CT Scan: Physical Exam Const alert, oriented x3 and no apparent distress General Appearance: cooperative HEENT hearing grossly normal bilaterally Head and Scalp: atraumatic Eyes EOMs intact bilaterally Neck General: normal visual inspection Chest inspection of chest normal and palpation of chest normal Resp normal respiratory effort Auscultation: clear to auscultation bilaterally Cardio regular rate, regular rhythm, S1 normal heart sound and S2 normal heart sound Jugular Venous Distention: JVD GI normal to inspection, nondistended, normoactive bowel sounds Extremity normal capillary refill and no pedal edema Peripheral Pulses: Yes pulses 2+ throughout and femoral pulses present Skin no rashes or lesions noted Neuro oriented x3 and CN's II-XII intact bilaterally Psych Appearance: grossly normal and appropriate Assessment & Plan Assessment/Plan (1) CAD (coronary artery disease): PLAN: Patient presented with an abnormal calcium score and was noted to have a proximal LAD stenosis for which she was angioplastied and stented. The plan is to continue with guideline directed medical therapy cardiac rehabilitation.
--- NOTE | 2024-09-09 07:25 | DCINST_ITS ---
Discharge Instructions DC O2, CPAP, BIPAP needs Home O2 Discharge instructions: No Dressing / Incision Discharge Activity: Return to Normal Activity Additional Activity Instructions:: You must have someone drive you home. Do not drive until instructed by your doctor. You must have someone stay with you all night after your test. Rest in bed or on the couch until the next morning. Limit the number of times you go up and down stairs the day of your test. Apply pressure to the puncture site if you sneeze or cough. Dressing / Incision Call your doctor if your incision/area has: Increased Pain/ Swelling, Increased Redness, Foul Smelling Discharge and Swelling at the incision site Call your doctor if you observe: Fever of 101 or Higher Additional Dressing/Incision Instructions:: Keep the dressing (bandage) on until the next morning. You may then shower, but do not take a tub bath for 5 days after your test. It is normal to have some tenderness and discomfort at the puncture site. Sometimes bruising also occurs. However, if pain, numbness, or coldness occurs below the puncture site (in your leg, toes, arms or fingers) call your doctor at once. You may have a small, marble sized knot at the puncture site. This is normal. Do not rub it. It will go away in 4-6 weeks. Bleeding can occur from the area where the puncture was done. Blood may spurt or drip from the site. If blood spurts, apply pressure right away to stop bleeding and call 911. Although rare, bleeding into the tissue (hematoma) can also occur. If this happens, a large, firm area goose egg under the skin will appear. If any of these occur, lie down as flat as you can and have someone apply firm pressure to the cath site with a gauze pad or a clean washcloth for 10-15 minutes. Call 911 or go to the Emergency Department. Follow Up Care Please Follow Up With: Leonid Camp MD When: Office will call with appointment. Test Results: Test results from this visit will be discussed in further detail at your follow- up appointment, if applicable. Discharge Plan Admission Admit Date/Time: 09/08/24 09:08 Attending Provider: Leonid Camp Primary Care Provider: Salvador Marte Discharge Orders/Prescriptions Prescriptions: New clopidogrel 75 mg Tablet 75 mg PO DAILY Qty: 90 3RF aspirin 81 mg Tablet,Delayed Release (Dr/Ec) 81 mg PO BREAKFAST Qty: 90 3RF metoprolol tartrate 25 mg Tablet 25 mg PO BID Qty: 180 3RF Continued multivitamin Tablet 1 tab PO DAILY omega-3 fatty acids 1,250 mg capsule 1,250 mg PO DAILY losartan 100 mg tablet 100 mg PO QDAY Patient Comments: take 1 tablet by mouth once daily amlodipine 10 mg tablet 10 mg PO QDAY rosuvastatin 20 mg tablet 20 mg PO QDAY aspirin [Adult Aspirin Regimen] 81 mg tablet,delayed release (DR/EC) 81 mg PO QDAY Referrals / Follow Up: Salvador Marte MD [Primary Care Provider] - Disposition Disposition (needs filled in before D/C Order can be placed): Home, Self Care
--- NOTE | 2024-09-09 08:53 | CASEMGMT ---
Patient has order for discharge. RN CM in to discuss needs at discharge. Patient denies needs or help at discharge. Patient had no further questions or concerns.
[2024-09-09 09:03] VITALS: PULSE 88
[2024-09-09] MEDS: Aspirin E.C. 81 MG Tablet PO (09:03)
--- NOTE | 2024-10-04 09:46 | CL.D_ITS ---
Patient Name: DARCY MONTERO Study Date: 09/08/2024 Performing: Leonid Camp MD Ht: 68 inches 172.72 cm : 1955 Wt: 226 lbs 102.51 kg Age: 69 Gender: male BSA: 2.15 PROCEDURE(S) PERFORMED DC01-(73033)LHC/COR/LV IC12-(18344/C9600)AJY W/WO PTCA, SINGLE CORONARY ARTERY IC11A-(75025)CORONARY INTRAVASCULAR LITHOTRIPSY CLINICAL PROFILE AND INDICATIONS Indications: Suspected CAD Heart Failure: None Stress/Imaging Coronary Calcium Score: Yes Calcium Score: 5000Calcium Score: 5000 CAD Presentations: No Sxs, no angina. CONCLUSIONS Proximal calcified long 70% stenosis in the LAD. RECOMMENDATIONS Referred for immediate PCI DESCRIPTION OF PROCEDURE The patient arrived to the procedure lab. The risks and benefits of the procedure as well as a full description of our services here and current unavailability of surgical backup were fully explained to the patient and/or their significant other prior to the catheterization. The Timeout was completed, verifying the correct patient and procedure. The patient's procedural site was prepped and draped in the usual fashion. Local anesthetic was given subcutaneously to right radial region with Lidocaine 2%. Using a modified Seldinger technique, arterial access was obtained via the right radial artery, a 6Fr sheath was inserted. Left Coronary Artery selective angiography was performed in multiple views using a 5 Fr. 4.0 Montgomery catheter. Right Coronary Artery selective angiography was then performed in multiple views using a 5 Fr. 4.0 Montgomery catheter. Left Ventriculography was performed in HAYES projection using a 5 Fr. Pigtail catheter. LV to AO pullback pressures were then recorded. CORONARY ANGIOGRAPHY DOMINANCE: Right Dominant LEFT HEART ASSESSMENT Left Ventricular Ejection Fraction: by LV Gram 65 % Normal LV wall motion Normal Left Ventricular systolic function LEFT MAIN: Angiographically normal LEFT ANTERIOR DESCENDING ARTERY: Moderate calcification, Proximal 70% long stenosis with the rest of the vessel and diagonal vessel being free of significant disease CIRCUMFLEX ARTERY: Mild luminal irregularities RIGHT CORONARY ARTERY: Mild luminal irregularities COMPLICATIONS PROCEDURE MEDICATIONS Fentanyl 50 mcg IV Versed 1 mg IV Versed 1 mg IV Fentanyl 50 mcg IV Versed 1 mg IV Baby Aspirin (81mg) 1 Tabs PO 09/08/2024 07:25:14 Brilinta 180 mg PO @ 09/08/2024 08:30:15 Heparin given IA 09/08/2024 08:00:26 Heparin 8000 unit(s) IV 09/08/2024 08:30:22 Verapamil 2.5mg, Ntg 100mcgs, 3000 units of Heparin given IA 09/08/2024 08:00:26 SUMMARY OF HEMODYNAMIC DATA Time AIR REST ECG 07:24:36 ECG 07:44:32 AO 134/61 (97) SA 08:04:46 LV 144/7, 23 08:13:28 LV 129/8, 16 08:13:36 LV 129/10, 19 08:14:18 LVp 129/10, 20 08:14:22 AOp 128/64 (91) 08:14:29 Signed By Leonid Camp MD On 09/08/2024 08:38:28 Signed By Leonid Camp MD On 09/08/2024 08:37:15 Leonid Camp MD
--- NOTE | 2024-10-04 09:46 | CL.I_ITS ---
Patient Name: DARCY MONTERO Study Date: 09/08/2024 Performing: Rasheed Odom MD Ht: 68 inches 172.72 cm : 1955 Wt: 226.3 lbs 102.51 kg Age: 69 Gender: male BSA: 2.15 PROCEDURE(S) PERFORMED IC11A-([id number])CORONARY INTRAVASCULAR LITHOTRIPSY IC12-(85476/C9600)JAY W/WO PTCA, SINGLE CORONARY ARTERY CLINICAL PROFILE AND CO-MORBIDITIES Indications: Suspected CAD Heart Failure: None Stress/Imaging Coronary Calcium Score: Yes Calcium Score: 5000 Calcium Score: 5000 CAD Presentations: No Sxs, no angina. CONCLUSIONS RECOMMENDATIONS ASA Indefinitley P2Y12 inhibitors for atleast 6 months DESCRIPTION OF PROCEDURE The patient arrived to the procedure lab. The risks and benefits of the procedure as well as a full description of our services here and current unavailability of surgical backup were fully explained to the patient and/or their significant other prior to the catheterization. The Timeout was completed, verifying the correct patient and procedure. The patient's procedural site was prepped and draped in the usual fashion. Local anesthetic was given subcutaneously to right radial region with Lidocaine 2% Using a modified Seldinger technique,arterial access was obtained via the right radial artery, a 6Fr sheath was inserted. Left Coronary Artery selective angiography was performed in multiple views using a 5 Fr. 4.0 [place] catheter. Right Coronary Artery selective angiography was then performed in multiple views using a 5 Fr. 4.0 [place] catheter. Left Ventriculography was performed in HAYES projection using a 5 Fr. Pigtail catheter. LV to AO pullback pressures were then recorded. XB 3.0 Guide catheter was inserted and engaged into the LCA. Runthrough Guide wire was advanced to the LAD. Angiogram performed post balloon dilatation. Govind [place] 3.0 x 34 Drug Eluting stent was inserted. Drug Eluting stent was advanced across the lesion in the LAD, proximal. Angiogram performed pre stent deployment. Angiogram performed post stent deployment. NC Emerge 3.0 x 20 Balloon catheter was inserted. Balloon catheter was advanced across lesion in the LAD, proximal. Angiogram performed pre balloon dilatation. Angiogram performed post balloon dilatation. Angiogram performed post balloon dilatation. The arterial sheath was pulled and a TR Band was applied for hemostasis INTERVENTION INFORMATION LESION SITE: LAD (Proximal) Lesion Complexity: High/C Pre Stenosis: 80 % Pre intervention JASMEET flow: 3 PROCEDURE: Drug Eluting Stent with pre and post dilatation, IVL Post Stenosis: 0 % Post intervention JASMEET flow: 3 Lesion Devices: Terumo .014 180cm Runthrough Extra Floppy straight Cordis 6 Fr XB3.0 100cm Guide Catheter [employer] Shockwave IVL 2.5x12 Medtronic 3.0 x 34 GOVIND FRONTIER JAY [employer] NC EMERGE MR 3.00x20 BALLOON COMPLICATIONS No Complications PROCEDURE MEDICATIONS Fentanyl 50 mcg IV Versed 1 mg IV Versed 1 mg IV Fentanyl 50 mcg IV Versed 1 mg IV Baby Aspirin (81mg) 1 Tabs PO 09/08/2024 07:25:14 Brilinta 180 mg PO @ 09/08/2024 08:30:15 Heparin given IA 09/08/2024 08:00:26 Heparin 8000 unit(s) IV 09/08/2024 08:30:22 Heparin 2000 unit(s) IV 09/08/2024 08:53:11 Nitro 200 mcg IC 09/08/2024 08:52:55 Verapamil 2.5mg, Ntg 100mcgs, 3000 units of Heparin given IA 09/08/2024 08:00:26 SUMMARY OF HEMODYNAMIC DATA Time AIR REST ECG 07:24:36 ECG 07:44:32 AO 134/61 (97) SA 08:04:46 LV 144/7, 23 08:13:28 LV 129/8, 16 08:13:36 LV 129/10, 19 08:14:18 LVp 129/10, 20 08:14:22 AOp 128/64 (91) 08:14:29 Signed By Rasheed Odom MD On 09/08/2024 09:16:18 Rasheed Odom MD
== END 2024-09-09 10:09 | disposition home or self-care (01) ==
LOC: PCU 09:24
PROVIDERS: Internal Medicine Cardiovascular Disease; Admitting Provider Internal Medicine Cardiovascular Disease; PCP Family Medicine; Referring Provider Internal Medicine Cardiovascular Disease; Visit Provider Internal Medicine Cardiovascular Disease
DX: I25.10 Atherosclerotic heart disease of native coronary artery without angina pectoris (principal); I10 Essential (primary) hypertension; E78.5 Hyperlipidemia, unspecified; Z82.49 Family history of ischemic heart disease and other diseases of the circulatory system; Z79.899 Other long term (current) drug therapy; Z79.82 Long term (current) use of aspirin; Z87.891 Personal history of nicotine dependence; R93.1 Abnormal findings on diagnostic imaging of heart and coronary circulation
CPT/HCPCS: 36415; 80053; 85027; 85347; 92928; 92972; 93005; 93458; 96360; 96361; 99152; 99153; 99221; C1761; J0153; Q9967; C1725; C1769; C1874; C1887; C1894; C9600; G0378